=== PATIENT | female | born 1955 | race American Indian/Alaskan Native ===

== ENCOUNTER 2018-06-13 20:06 | Inpatient (IN) | payer BC, OTHER, SELFPAY ==
[2018-06-13] MEDS ORDERED: CATAPRES PO ONE (20:56)
--- NOTE | 2018-06-13 20:56 | Emergency Department Report ---
Chief Complaint: Weakness Stated Complaint: WEAKNESS/SWEATING Time Seen by Provider: 06/13/18 20:49 - HPI History of Present Illness: This is a 62 y.o. female that presents with weakness and lightheadedness x 2 days. She also complains of diaphoresis every 4 hours. PMH of DM2 & HTN. Patient states she took her self off medication for 6 months. She denies chest pain, SOB, n/v, or palpitations. - ROS Review of Systems: diaphoresis, weakness, and dizziness - Exam Vital Signs: Vital Signs 06/13/18 20:55 Temperature 98.3 F Pulse Rate 86 Respiratory 18 Rate Blood Pressure 214/109 O2 Sat by Pulse 97 Oximetry MSE screening note: Focused history and physical exam performed. Due to findings the following was ordered: labs, POC glucose 321, & ekg Given clonidine 0.2 mg po once Fast track for further evaluation. ED Disposition for MSE Condition: Stable
[2018-06-13 21:17] LABS: Basophils % (Auto) 0.6 % (0.0-1.8); Eosinophils # (Auto) 0.1 K/mm3 (0.0-0.4); Eosinophils % (Auto) 0.8 % (0.0-4.3); Hematocrit 37.1 % (30.3-42.9); Hemoglobin 12.3 gm/dl (10.1-14.3); Lymphocytes # (Auto) 2.3 K/mm3 (1.2-5.4); Lymphocytes % (Auto) 31.9 % (13.4-35.0); Mean Corpuscular HGB Conc 33 % (30-34); Mean Corpuscular Volume 82 fl (79-97); Monocytes # (Auto) 0.3 K/mm3 (0.0-0.8); Monocytes % (Auto) 4.8 % (0.0-7.3); Platelet Count 291 K/mm3 (140-440); Red Blood Count 4.53 M/mm3 (3.65-5.03); Red Cell Distribution Width 16.2 % (13.2-15.2)
[2018-06-13 21:44] LABS: Alanine Aminotransferase 10 units/L (7-56); Albumin 3.8 g/dL (3.9-5); BUN/Creatinine Ratio 17; Blood Urea Nitrogen 10 mg/dL (7-17); Calcium 9.1 mg/dL (8.4-10.2); Hemolysis Index 7
[2018-06-13] MEDS ORDERED: APRESOLINE IV ONE (21:49)
--- NOTE | 2018-06-13 21:54 | Emergency Department Report ---
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 Patient has history of hypertension and diabetes however patient states she took herself off of her medications approximately 6 months ago, recently followed up with her primary care physician. The patient denies chest pain, shortness of breath, headache. Patient denies abdominal pain or diarrhea, urinary frequency. -: days(s) (3) Severity scale (0 -10): 0 Consistency: intermittent Improves with: none Worsens with: none Associated Symptoms: diaphoresis, malaise, nausea/vomiting, weakness. denies: chest pain, cough, fever/chills, headaches, shortness of breath - Related Data Home Medications Medication Instructions Recorded Confirmed Last Taken No Known Home Medications [No 06/14/18 06/14/18 Unknown Reported Home Medications] Allergies Allergy/AdvReac Type Severity Reaction Status Date / Time No Known Allergies Allergy Unverified 04/18/14 11:21 ED Review of Systems ROS: Stated complaint: WEAKNESS/SWEATING Other details as noted in HPI Comment: All other systems reviewed and negative Constitutional: diaphoresis, malaise. denies: chills, fever Respiratory: denies: cough, shortness of breath Cardiovascular: denies: chest pain Gastrointestinal: nausea, vomiting. denies: abdominal pain, diarrhea Genitourinary: denies: frequency Neurological: headache (mild) ED Past Medical Hx - Past Medical History Previous Medical History?: Yes Hx Hypertension: Yes Hx Diabetes: Yes - Surgical History Past Surgical History?: No - Social History Smoking Status: Never Smoker Substance Use Type: None - Medications Home Medications: Home Medications Medication Instructions Recorded Confirmed Last Taken Type No Known Home Medications [No 06/14/18 06/14/18 Unknown History Reported Home Medications] ED Physical Exam - General Limitations: No Limitations General appearance: alert, in no apparent distress - Head Head exam: Present: atraumatic, normocephalic - Eye Eye exam: Present: normal appearance - ENT ENT exam: Present: mucous membranes moist - Neck Neck exam: Present: normal inspection - Respiratory Respiratory exam: Present: normal lung sounds bilaterally. Absent: respiratory distress - Cardiovascular Cardiovascular Exam: Present: regular rate, normal rhythm - GI/Abdominal GI/Abdominal exam: Present: soft. Absent: distended, tenderness - Extremities Exam Extremities exam: Present: normal inspection. Absent: pedal edema - Neurological Exam Neurological exam: Present: alert, oriented X3, CN II-XII intact. Absent: motor sensory deficit - Psychiatric Psychiatric exam: Present: normal affect, normal mood - Skin Skin exam: Present: warm, dry, intact, normal color ED Course Vital Signs 06/13/18 06/13/18 06/13/18 20:55 21:05 21:18 Temperature 98.3 F Pulse Rate 86 86 Respiratory 18 Rate Blood Pressure 214/109 214/109 Blood Pressure [Left] O2 Sat by Pulse 97 97 Oximetry 06/13/18 06/13/18 06/13/18 21:25 21:30 21:45 Temperature 98.1 F Pulse Rate 74 68 67 Respiratory 23 21 21 Rate Blood Pressure 229/114 228/107 Blood Pressure 229/114 [Left] O2 Sat by Pulse 98 97 97 Oximetry 06/13/18 06/13/18 06/13/18 22:00 22:16 22:30 Temperature Pulse Rate 70 84 84 Respiratory 23 25 H 26 H Rate Blood Pressure 202/107 202/107 202/107 Blood Pressure [Left] O2 Sat by Pulse 95 96 95 Oximetry 06/13/18 06/13/18 06/13/18 22:54 23:00 23:15 Temperature Pulse Rate 82 73 Respiratory 24 22 Rate Blood Pressure 202/107 196/105 215/105 Blood Pressure [Left] O2 Sat by Pulse 94 95 94 Oximetry 06/13/18 06/13/18 06/14/18 23:31 23:45 00:00 Temperature Pulse Rate 72 70 76 Respiratory 23 15 23 Rate Blood Pressure 215/105 196/105 198/105 Blood Pressure [Left] O2 Sat by Pulse 95 96 93 Oximetry 06/14/18 06/14/18 06/14/18 00:08 00:21 00:31 Temperature Pulse Rate 85 Respiratory 19 Rate Blood Pressure 198/105 Blood Pressure [Left] O2 Sat by Pulse 93 93 94 Oximetry 06/14/18 06/14/18 06/14/18 00:45 01:00 01:15 Temperature Pulse Rate 74 74 67 Respiratory 20 23 16 Rate Blood Pressure 198/105 177/98 177/100 Blood Pressure [Left] O2 Sat by Pulse 92 92 94 Oximetry 06/14/18 06/14/18 06/14/18 01:30 01:45 02:00 Temperature Pulse Rate 73 70 74 Respiratory 13 26 H 23 Rate Blood Pressure 186/109 173/96 178/102 Blood Pressure [Left] O2 Sat by Pulse 96 86 96 Oximetry 06/14/18 06/14/18 06/14/18 02:15 02:31 02:45 Temperature Pulse Rate 67 71 73 Respiratory 12 20 20 Rate Blood Pressure 186/109 186/109 191/106 Blood Pressure [Left] O2 Sat by Pulse 96 95 94 Oximetry 06/14/18 06/14/18 03:00 03:25 Temperature Pulse Rate 81 83 Respiratory 24 22 Rate Blood Pressure 163/84 Blood Pressure [Left] O2 Sat by Pulse 91 94 Oximetry ED Medical Decision Making - Lab Data Result diagrams: 06/14/18 02:56 06/14/18 02:56 - EKG Data -: EKG Interpreted by Or EKG shows normal: sinus rhythm, axis, intervals, QRS complexes Rate: normal - EKG Data When compared to previous EKG there are: no significant change (compared to 04/19/2011) Interpretation: nonspecific ST-T wave flash - Radiology Data Radiology results: report reviewed - Medical Decision Making 62-year-old female complaining with blood pressure medications presents with hypertensive urgency. Patient reports dizziness but no neuro deficits on exam. CT head negative for any acute findings. Patient given clonidine and hydralazine for blood pressure, however remains hypertensive, so patient placed on a Cardene drip. Labs unremarkable. Will admit to hospitalist, Dr. Parsons, for further management - Differential Diagnosis CVA, hypertensive urgency, DKA Critical Care Time: Yes Critical care time in (mins) excluding proc time.: 35 Critical care attestation.: If time is entered above; I have spent that time in minutes in the direct care of this critically ill patient, excluding procedure time. Critical Care Time: 35 minutes ED Disposition Clinical Impression: Hypertensive emergency, Dizziness Disposition: DC-[id number] OP ADMIT IP TO THIS HOSP Is pt being admited?: Yes Condition: Critical
[2018-06-13] MEDS ORDERED: CARDENE 50 MG in NACL 0.9% 250ML 230 ML IV SCH (23:45)
[2018-06-14 00:10] LABS: Bilirubin,Urine NEG (Negative); Blood,Urine NEG (Negative); Calcium Oxalate Crystals,Urine FEW; Color,Urine Yellow (Yellow); Mucus,Urine FEW /HPF; Protein,Urine <15 mg/dL mg/dL (Negative); Urobilinogen,Urine < 2.0 mg/dL (<2.0)
--- NOTE | 2018-06-14 00:28 | Cat Scan Report ---
PROCEDURE: CT HEAD/BRAIN WO CON TECHNIQUE: Routine axial imaging was obtained of the brain without IV contrast. HISTORY: dizziness COMPARISONS: None FINDINGS: There is diminished attenuation of the periventricular white matter compatible with chronic ischemic white matter disease changes. There is no evidence of acute stroke or hemorrhage. There is a remote l acunar infarct in the right basal ganglia. The visualized sinuses are clear. The mastoid air cells ar e well pneumatized. The calvarium appears intact. IMPRESSION: No evidence of acute stroke or hemorrhage. Chronic ischemic white matter disease change noted. Remote lacunar infarct in the right basal ganglia.. This document is electronically signed by Jesus Murillo MD., June 14 2018 12:26:03 AM ET
[2018-06-14] MEDS ORDERED: TYLENOL PO ONE (01:09)
--- NOTE | 2018-06-14 01:59 | History and Physical Report ---
History of Present Illness Date of examination: 06/14/18 History of present illness: 62-year-old woman with a history of hypertension, diabetes noncompliant with medication 6 months come to emergency room with complaints of 3 days of general malaise, all weakness, dizziness, diaphoresis and headache. Also complaining of one episode of nausea and vomiting. Blood pressure was unresponsive to IV hydralazine, clonidine, she is subsequent started on Cardene drip Review of systems Constitutional: no weight loss, chills, fever Ears, eyes, nose, mouth and throat: no nasal congestion, no nasal discharge, no sinus pressure, no vision change, no red eye. Neck: No neck pain or rigidity. Cardiovascular: no palpitations, chest pain Respiratory: no cough, shortness of breath Gastrointestinal: no hematochezia, abdominal pain Genitourinary : no frequency , no hematuria Musculoskeletal: no joint swelling or muscle ache Integumentary: no rash, no pruritis Neurological: no parathesias, no focal weakness Endocrine: no cold or heat intolerance, no polyuria or polydipsia Hematologic/Lymphatic: no easy bruising, no easy bleeding, no gland swelling Allergic/Immunologic: no urticaria, no angioedema. PAST MEDICAL HISTORY:hypertension, diabetes PAST SURGICAL HISTORY: 1 SOCIAL HISTORY: Denies alcohol, drugs, tobacco FAMILY HISTORY: Hypertension Medications and Allergies Allergies Allergy/AdvReac Type Severity Reaction Status Date / Time No Known Allergies Allergy Unverified 04/18/14 11:21 Home Medications Medication Instructions Recorded Confirmed Last Taken Type No Known Home Medications [No 06/14/18 06/14/18 Unknown History Reported Home Medications] Active Meds: Active Medications Nicardipine HCl 50 mg/ Sodium (Chloride) 250 mls @ 25 mls/hr IV TITR AMADO; Protocol Exam - Physical Exam Narrative exam: General Apperance: The patient lying in bed, breathing comfortable HEENT: Normocephalic, atraumatic. Pupils equally round and reactive to light, EOMI, no sclericterus or JVD or thyromegaly or nodule. , no carotid bruit, mucous membranes moist, no exudate or erythema Heart: S1-S2, regular is rhythm Lungs: Clear to auscultation bilaterally, breathing comfortable Abdomen: Positive bowel sounds, soft, nontender, nondistended, no organomegaly Extremities: No edema cyanosis clubbing Skin: no rash, nodule, warm and dry Neuro: cranial nerves 2-12 intact, speech is fluent, motor/sensory intact - Constitutional Vitals: Temp Pulse Resp BP Pulse Ox 98.1 F 73 13 186/109 96 06/13/18 21:25 06/14/18 01:30 06/14/18 01:30 06/14/18 01:30 06/14/18 01:30 Results - Labs CBC & Chem 7: 06/13/18 21:05 06/13/18 21:05 Labs: Abnormal lab results 06/13/18 06/13/18 06/13/18 Range/Units 21:05 21:05 21:26 MCH 27 L (28-32) pg RDW 16.2 H (13.2-15.2) % Creatinine 0.6 L (0.7-1.2) mg/dL Glucose 338 H (65-100) mg/dL POC Glucose 274 H (70-105) Albumin 3.8 L (3.9-5) g/dL Ur Specific [place] (1.003-1.030) 06/13/18 Range/Units 23:02 MCH (28-32) pg RDW (13.2-15.2) % Creatinine (0.7-1.2) mg/dL Glucose (65-100) mg/dL POC Glucose (70-105) Albumin (3.9-5) g/dL Ur Specific [place] 1.032 H (1.003-1.030) - Imaging and Cardiology CT Scan - head: report reviewed Assessment and Plan Assessment Hypertensive urgency Diabetes, uncontrolled Plan Continue Cardene drip Give a dose of Lantus now, start insulin sliding scale, fingersticks Check cardiac enzymes, DVT prophylaxis Consult critical care
[2018-06-14] MEDS ORDERED: SODIUM CHLORIDE FLUSH SYRINGE 10 ML IV PRN (02:20)
[2018-06-14] MEDS ORDERED: ZOFRAN IV PRN (02:20)
[2018-06-14] MEDS ORDERED: PERCOCET 5/325 PO PRN (02:20)
[2018-06-14] MEDS ORDERED: D50W (25GM) Syringe IV PRN (02:20)
[2018-06-14] MEDS ORDERED: LANTUS SUB-Q ONE (02:20)
[2018-06-14 03:15] LABS: Basophils % (Auto) 0.6 % (0.0-1.8); Eosinophils # (Auto) 0.1 K/mm3 (0.0-0.4); Hematocrit 36.2 % (30.3-42.9); Hemoglobin 11.6 gm/dl (10.1-14.3); Lymphocytes # (Auto) 2.7 K/mm3 (1.2-5.4); Lymphocytes % (Auto) 41.6 % (13.4-35.0); Mean Corpuscular HGB Conc 32 % (30-34); Mean Corpuscular Volume 82 fl (79-97); Monocytes # (Auto) 0.4 K/mm3 (0.0-0.8); Monocytes % (Auto) 5.6 % (0.0-7.3); Platelet Count 262 K/mm3 (140-440); Red Blood Count 4.41 M/mm3 (3.65-5.03); Red Cell Distribution Width 16.2 % (13.2-15.2)
[2018-06-14 03:39] LABS: BUN/Creatinine Ratio 18; Blood Urea Nitrogen 9 mg/dL (7-17); Calcium 8.9 mg/dL (8.4-10.2); Hemolysis Index 5
[2018-06-14] MEDS ORDERED: PNEUMOVAX 23 IM ONE ×2 (03:55→12:00)
[2018-06-14 03:58] LABS: Creatine Kinase MB < 1.0 ng/mL (0.0-4.0)
[2018-06-14] MEDS: HumaLOG SUB-Q SCH ×4 (08:00→22:11)
[2018-06-14] MEDS ORDERED: NORVASC PO SCH (09:00)
[2018-06-14] MEDS: APRESOLINE PO SCH ×3 (09:00→22:10)
[2018-06-14] MEDS: LOVENOX SUB-Q SCH (09:35)
[2018-06-14] MEDS: SODIUM CHLORIDE FLUSH SYRINGE 10 ML IV SCH ×2 (09:37→22:12)
--- NOTE | 2018-06-14 09:50 | Event Note ---
Date: 06/14/18 Patient with hypertensive emergency. was on cardene drip, now off, sine BP improved. Start Norvasc and Hydralazine. Stable to go to med/surg.
[2018-06-14] MEDS ORDERED: LOVENOX SUB-Q SCH (10:00)
[2018-06-14 10:29] LABS: Creatine Kinase MB < 1.0 ng/mL (0.0-4.0)
--- NOTE | 2018-06-14 10:33 | XRay Report ---
PORTABLE CHEST: Hypertension An AP portable view of the chest demonstrates a normal cardiac contour considering the limits of this technique. The lungs are clear with no evidence of infiltrate, fluid or failure. IMPRESSION: Normal portable chest.
--- NOTE | 2018-06-14 11:18 | Event Note ---
Date: 06/14/18 Patient admitted as hypertensive Urgency. Cardene weaned off, started on oral therapy and transfer orders already placed. No indication for Critical care to see.
[2018-06-14] MEDS ORDERED: LANTUS SUB-Q SCH (22:00)
[2018-06-15] MEDS: APRESOLINE PO SCH ×3 (06:10→22:33)
[2018-06-15] MEDS ORDERED: APRESOLINE PO SCH (08:00)
[2018-06-15] MEDS ORDERED: NORVASC PO SCH (08:00)
[2018-06-15] MEDS: HumaLOG SUB-Q SCH ×4 (08:31→22:40)
[2018-06-15] MEDS: NORVASC PO SCH (08:42)
[2018-06-15] MEDS: TYLENOL PO PRN ×2 (10:07→18:00)
[2018-06-15] MEDS: LOVENOX SUB-Q SCH (10:08)
[2018-06-15] MEDS: APRESOLINE IV PRN ×2 (12:23→18:02)
[2018-06-15] MEDS: SODIUM CHLORIDE FLUSH SYRINGE 10 ML IV SCH ×2 (12:24→22:07)
--- NOTE | 2018-06-15 17:02 | Progress Note ---
Assessment and Plan Assessment and plan: hypertensive emergency Started on Amlodipine and Hydralazine. Increased dose of Amlodipine and Hydralazine If BP remains high may add Clonidine Patient has been non-compliant with meds Diabetes mellitus type 2 Uncontrolled Started on Novolin 70/30 patient has been off oral meds for more than 6 months I recommended Insulin on discharge but she decloines, she prefers oral meds morbid obesity Full code status History Interval history: Headache Dizziness nausea and vomiting Hospitalist Physical - Physical exam Narrative exam: GEN: Not in acute distress, lying in bed HEENT: Normocephalic, atraumatic, Neck: supple, No JVD Heart:S1 and S2 reg, no murmurs Lungs: Clear to auscultation bilat, no crackles, no wheeze Abd:soft, non tender, non distended, normal bowel sounds Ext: Trace bilat edema, no clubbing, no cyanosis Neuro:Awake,alert,oriented X 3, no focal signs Psych: normal mood - Constitutional Vitals: Temp Pulse Resp BP Pulse Ox 98.0 F 108 H 18 189/82 93 06/15/18 11:51 06/15/18 13:00 06/15/18 13:00 06/15/18 14:32 06/15/18 11:53 Results - Labs CBC & Chem 7: 06/14/18 02:56 06/14/18 02:56 Labs: Laboratory Last Values WBC 6.5 K/mm3 (4.5-11.0) 06/14/18 02:56 RBC 4.41 M/mm3 (3.65-5.03) 06/14/18 02:56 Hgb 11.6 gm/dl (10.1-14.3) 06/14/18 02:56 Hct 36.2 % (30.3-42.9) 06/14/18 02:56 MCV 82 fl (79-97) 06/14/18 02:56 MCH 26 pg (28-32) L 06/14/18 02:56 MCHC 32 % (30-34) 06/14/18 02:56 RDW 16.2 % (13.2-15.2) H 06/14/18 02:56 Plt Count 262 K/mm3 (140-440) 06/14/18 02:56 Lymph % (Auto) 41.6 % (13.4-35.0) H 06/14/18 02:56 [place] % (Auto) 5.6 % (0.0-7.3) 06/14/18 02:56 Eos % (Auto) 1.0 % (0.0-4.3) 06/14/18 02:56 Baso % (Auto) 0.6 % (0.0-1.8) 06/14/18 02:56 Lymph # 2.7 K/mm3 (1.2-5.4) 06/14/18 02:56 [place] # 0.4 K/mm3 (0.0-0.8) 06/14/18 02:56 Eos # 0.1 K/mm3 (0.0-0.4) 06/14/18 02:56 Baso # 0.0 K/mm3 (0.0-0.1) 06/14/18 02:56 Seg Neutrophils % 51.2 % (40.0-70.0) 06/14/18 02:56 Seg Neutrophils # 3.3 K/mm3 (1.8-7.7) 06/14/18 02:56 Sodium 136 mmol/L (137-145) L 06/14/18 02:56 Potassium 3.7 mmol/L (3.6-5.0) 06/14/18 02:56 Chloride 97.7 mmol/L (98-107) L 06/14/18 02:56 Carbon Dioxide 26 mmol/L (22-30) 06/14/18 02:56 Anion Gap 16 mmol/L 06/14/18 02:56 BUN 9 mg/dL (7-17) 06/14/18 02:56 Creatinine 0.5 mg/dL (0.7-1.2) L 06/14/18 02:56 Estimated GFR > 60 ml/min 06/14/18 02:56 BUN/Creatinine Ratio 18 % 06/14/18 02:56 Glucose 268 mg/dL (65-100) H 06/14/18 02:56 POC Glucose 272 (70-105) H 06/15/18 11:55 Hemoglobin A1c 11.4 % (4-6) H 06/15/18 04:51 Calcium 8.9 mg/dL (8.4-10.2) 06/14/18 02:56 Total Bilirubin 0.30 mg/dL (0.1-1.2) 06/13/18 21:05 AST 11 units/L (5-40) 06/13/18 21:05 ALT 10 units/L (7-56) 06/13/18 21:05 Alkaline Phosphatase 88 units/L (35-129) 06/13/18 21:05 Total Creatine Kinase 45 units/L (30-135) 06/14/18 09:06 CK-MB (CK-2) < 1.0 ng/mL (0.0-4.0) 06/14/18 09:06 CK-MB (CK-2) Rel Index 2.2 (0-4) 06/14/18 09:06 Troponin T < 0.010 ng/mL (0.00-0.029) 06/14/18 09:06 Total Protein 7.4 g/dL (6.3-8.2) 06/13/18 21:05 Albumin 3.8 g/dL (3.9-5) L 06/13/18 21:05 Albumin/Globulin Ratio 1.1 % 06/13/18 21:05 Urine Color Yellow (Yellow) 06/13/18 23:02 Urine Turbidity Clear (Clear) 06/13/18 23:02 Urine pH 5.0 (5.0-7.0) 06/13/18 23:02 Ur Specific [place] 1.032 (1.003-1.030) H 06/13/18 23:02 Urine Protein <15 mg/dl mg/dL (Negative) 06/13/18 23:02 Urine Glucose (UA) >=500 mg/dL (Negative) 06/13/18 23:02 Urine Ketones Tr mg/dL (Negative) 06/13/18 23:02 Urine Blood Neg (Negative) 06/13/18 23:02 Urine Nitrite Neg (Negative) 06/13/18 23:02 Urine Bilirubin Neg (Negative) 06/13/18 23:02 Urine Urobilinogen < 2.0 mg/dL (<2.0) 06/13/18 23:02 Ur Leukocyte Esterase Neg (Negative) 06/13/18 23:02 Urine WBC (Auto) 1.0 /HPF (0.0-6.0) 06/13/18 23:02 Urine RBC (Auto) 2.0 /HPF (0.0-6.0) 06/13/18 23:02 U Epithel Cells (Auto) 6.0 /HPF (0-13.0) 06/13/18 23:02 Calcium Oxalate Crystal Few 06/13/18 23:02 Urine Mucus Few /HPF 06/13/18 23:02
[2018-06-15] MEDS ORDERED: IBUPROFEN PO PRN (18:09)
[2018-06-15] MEDS: GLUCOPHAGE PO SCH (22:33)
[2018-06-16] MEDS: APRESOLINE PO SCH ×2 (06:29→13:37)
[2018-06-16] MEDS: HumaLOG SUB-Q SCH ×3 (07:30→16:30)
[2018-06-16] MEDS: GLUCOPHAGE PO SCH ×2 (08:00→17:41)
[2018-06-16] MEDS: LOVENOX SUB-Q SCH (09:36)
[2018-06-16] MEDS: NORVASC PO SCH (09:37)
[2018-06-16] MEDS: SODIUM CHLORIDE FLUSH SYRINGE 10 ML IV SCH (09:38)
[2018-06-16] MEDS ORDERED: CATAPRES PO SCH (10:00)
[2018-06-16 14:45] VITALS: BP 137/75
--- NOTE | 2018-06-16 15:09 | Discharge Summary ---
Providers - Providers Date of Admission: 06/14/18 01:59 Date of discharge: 06/16/18 Attending physician: ROMERO RAMESH Primary care physician: [employer]IST[employer] Hospitalization Condition: Fair Hospital course: Patient is 62 yo with a history of hypertension, diabetes, noncompliant with medication 6 months came to emergency room with complaints of 3 days of general malaise, generalized weakness, dizziness, diaphoresis and headache. Also complaining of one episode of nausea and vomiting. Initial BP was 214/109 Blood pressure was unresponsive to IV hydralazine, clonidine, she was subsequent started on Cardene drip and orders put in to admit to ICU. However BP improved in Ed, shewas started on oral pills and admitted to Medical floor. She was put on Norvasc, Hydralazine, BP became controlled. On 06/16/18 her BP was stable at 137/75 and she was discharged home on Norvasc, Clonidine, Hydralazine and Metformin. Insulin was offered for diabetes but she declined , says she prefers pills. Total time spent on discharge, 32 mins Disposition: DC- TO HOME OR SELFCARE - Discharge Diagnoses (1) Diabetes mellitus type 2, uncontrolled Status: Acute (2) Hypertensive emergency Status: Acute (3) Morbid obesity Status: Acute Core Measure Documentation - Palliative Care Palliative Care/ Comfort Measures: Not Applicable - Core Measures Any of the following diagnoses?: none Exam - Physical Exam Narrative exam: GEN: Not in acute distress, lying in bed HEENT: Normocephalic, atraumatic, Neck: supple, No JVD Heart:S1 and S2 reg, no murmurs Lungs: Clear to auscultation bilat, no crackles, no wheeze Abd:soft, non tender, non distended, normal bowel sounds Ext: Trace bilat edema, no clubbing, no cyanosis Neuro:Awake,alert,oriented X 3, no focal signs Psych: normal mood - Constitutional Vitals: Temp Pulse Resp BP Pulse Ox 98.6 F 89 20 137/75 95 06/16/18 14:41 06/16/18 14:41 06/16/18 14:41 06/16/18 14:41 06/16/18 14:41 Plan Activity: advance as tolerated Diet: low fat, low cholesterol, low salt, diabetic Additional Instructions: 1.Follow up with Dr. Janett in 3-5 days Prescriptions: hydrALAZINE [Apresoline TAB] 100 mg PO Q8HR #90 tab cloNIDine [Catapres] 0.1 mg PO BID #60 tablet AtorvaSTATin [Lipitor] 20 mg PO QHS #30 tab amLODIPine [Norvasc] 10 mg PO DAILY #30 tablet
[2018-06-16 18:08] LABS: Chol/HDL Ratio 4.6 %
== END 2018-06-16 18:20 | disposition home or self-care (01) | DRG 305 ==
LOC: ED 20:06 → CC1 06-14 01:59 → 3A 06-14 14:02
PROVIDERS: ADMIT Internal Medicine; ATTEND Internal Medicine
PROC: 3E0234Z Introduction of Serum, Toxoid and Vaccine into Muscle, Percutaneous Approach (ICD-10-PCS; principal; 2018-06-14)
DX: I16.1 Hypertensive emergency (principal); Z68.41 Body mass index [BMI] 40.0-44.9, adult; E11.9 Type 2 diabetes mellitus without complications; E66.01 Morbid (severe) obesity due to excess calories; I10 Essential (primary) hypertension; Z91.14 Patient's other noncompliance with medication regimen; Z82.49 Family history of ischemic heart disease and other diseases of the circulatory system; Z23 Encounter for immunization
CPT/HCPCS: 36415; 70450; 71045; 80048; 80053; 80061; 81001; 82550; 82553; 82962; 83036; 84484; 85025; 90732; 93005; 93010; 96372; 96374; G0378; J0360; J1650; J1815; J7050

== ENCOUNTER 2018-06-18 17:15 | Inpatient (IN) | payer OTHER, SELFPAY ==
[2018-06-18] MEDS ORDERED: NORMODYNE IV ONE ×2 (20:30→20:34)
[2018-06-18] MEDS ORDERED: ZOFRAN IV ONE (20:30)
[2018-06-18] MEDS ORDERED: ZOFRAN ONE (20:34)
--- NOTE | 2018-06-18 20:59 | Emergency Department Report ---
HPI - General Chief Complaint: Nausea/Vomiting/Diarrhea Time Seen by Provider: 06/18/18 20:49 - HPI HPI: Room 25 The patient is 62-year-old female presenting with chief complaint of nausea vomiting and diarrhea. Patient states she had eaten some oatmeal toast and aches this morning at 10:00. At approximately noon she states she began having nausea vomiting and diarrhea. Patient denies headache, chest pain or abdominal pain. Patient denies any other complaints. HPI update (20:05) Patient now states that she has had a headache since earlier this afternoon. Location: Gastrointestinal system Duration: Constant since noon Quality: Nausea Severity: Moderate Modifying factors: [see above] Context: [see above] Mode of transportation: [not driving] ED Past Medical Hx - Past Medical History Hx Hypertension: Yes Hx Diabetes: Yes - Family History Family history: no significant - Social History Smoking Status: Never Smoker Substance Use Type: None - Medications Home Medications: Home Medications Medication Instructions Recorded Confirmed Last Taken Type AtorvaSTATin [Lipitor] 20 mg PO QHS #30 tab 06/16/18 06/19/18 06/17/18 Rx Metformin HCl 1,000 mg PO BID #60 tablet 06/16/18 06/19/18 06/18/18 Rx amLODIPine [Norvasc] 10 mg PO DAILY #30 tablet 06/16/18 06/19/18 06/18/18 Rx cloNIDine [Catapres] 0.1 mg PO BID #60 tablet 06/16/18 06/19/18 06/18/18 Rx hydrALAZINE [Apresoline TAB] 100 mg PO Q8HR #90 tab 06/16/18 06/19/18 06/18/18 Rx ED Review of Systems ROS: Stated complaint: LETHARGIC/NAUSEA VOMITING Other details as noted in HPI Constitutional: no symptoms reported Eyes: denies: eye pain ENT: denies: throat pain Respiratory: no symptoms reported Cardiovascular: denies: chest pain Endocrine: no symptoms reported Gastrointestinal: nausea, vomiting, diarrhea. denies: abdominal pain Genitourinary: denies: dysuria Musculoskeletal: denies: back pain Neurological: denies: headache Physical Exam - Physical Exam Vital Signs: Vital Signs 06/18/18 06/18/18 06/18/18 19:01 19:15 19:21 Temperature 97.5 F L Pulse Rate 92 H Respiratory 18 Rate Blood Pressure 202/94 207/98 192/93 Blood Pressure [Right] O2 Sat by Pulse 95 97 Oximetry 06/18/18 06/18/18 06/18/18 19:31 19:45 20:01 Temperature Pulse Rate 97 H 99 H Respiratory Rate Blood Pressure 197/94 212/102 206/97 Blood Pressure [Right] O2 Sat by Pulse 99 97 96 Oximetry 06/18/18 06/18/18 06/18/18 20:15 20:35 20:40 Temperature Pulse Rate 100 H 102 H 85 Respiratory Rate Blood Pressure 203/104 199/98 Blood Pressure 161/82 [Right] O2 Sat by Pulse Oximetry Physical Exam: GENERAL: The patient is well-developed well-nourished female lying on stretcher. [] HEENT: Normocephalic. Atraumatic. Extraocular motions are intact. Patient has moist mucous membranes. NECK: Supple. Trachea midline CHEST/LUNGS: Clear to auscultation. There is no respiratory distress noted. HEART/CARDIOVASCULAR: Regular. There is no tachycardia. There is no gallop rub or murmur. ABDOMEN: Abdomen is soft, nontender. Patient has normal bowel sounds. There is no abdominal distention. SKIN: There is no rash. There is no edema. There is no diaphoresis. NEURO: The patient is awake, alert, and oriented. The patient is cooperative. The patient has normal speech MUSCULOSKELETAL: There is no evidence of acute injury. ED Course Vital Signs 06/18/18 06/18/18 06/18/18 19:01 19:15 19:21 Temperature 97.5 F L Pulse Rate 92 H Respiratory 18 Rate Blood Pressure 202/94 207/98 192/93 Blood Pressure [Right] O2 Sat by Pulse 95 97 Oximetry 06/18/18 06/18/18 06/18/18 19:31 19:45 20:01 Temperature Pulse Rate 97 H 99 H Respiratory Rate Blood Pressure 197/94 212/102 206/97 Blood Pressure [Right] O2 Sat by Pulse 99 97 96 Oximetry 06/18/18 06/18/18 06/18/18 20:15 20:35 20:40 Temperature Pulse Rate 100 H 102 H 85 Respiratory Rate Blood Pressure 203/104 199/98 Blood Pressure 161/82 [Right] O2 Sat by Pulse Oximetry ED Medical Decision Making - Lab Data Result diagrams: 06/18/18 21:13 06/19/18 00:07 - EKG Data -: EKG Interpreted by Me EKG shows normal: sinus rhythm Rate: normal - EKG Data When compared to previous EKG there are: no significant change Interpretation: unchanged when compared t (06/13/2018) - Radiology Data Radiology results: report reviewed (CT head, CT abdomen and pelvis), image reviewed (CT head, CT abdomen and pelvis) [facility] [address] [place] [address] Cat Scan Report Signed Patient: HEIDE GALLEGOS MR#: [id number] 121 : 1955 Acct:[id number] Age/Sex: 62 / F ADM Date: 06/18/18 Loc: ED Attending Dr: Ordering Physician: KEN DEL ROSARIO MD Date of Service: 06/18/18 Procedure(s): CT a bdomen pelvis w con Accession Number(s): [id number] cc: KEN DEL ROSARIO MD PROCEDURE: CT ABDOMEN PELVIS W CON TECHNIQUE: Computerized axial tomography of the abdomen and pelvis was performed after the IV injection of iodinated nonionic contrast. CT DOSE LENGTH PRODUCT: mGycm HISTORY: nausea vomiting diarrhea COMPARISONS: None . FINDINGS: Lower Lung rivera: Small amount of linear atelectasis seen in the lung bases which otherwise appear clear. Upper Abdomen: The liver density is mildly diffusely decreased consistent with fatty infiltration. There is increased density dependently in the gallbladder. I suspect there may be gallstones present. The gallbladder is otherwise unremarkable. The adrenal gla nds, the pancreas and spleen are unremarkable. Small hiatal hernia appears to be present. Kidneys, Ureters and Urinary bladder: Subcentimeter renal cortical cysts appear to be visualized bilaterally. The kidneys, ureters and urinary bladder otherwise are unremarkable. Calcifications are seen in the lower pelvis which appear to represent phleboliths. Urinary bladder showed no focal abnormality. Retroperitoneum: Atherosclerotic changes are seen in the abdominal aorta. No aneurysm is visualized. Nonspecific subcentimeter lymph nodes are seen in the retroperitoneum. No pathologically enlarged lymph nodes are identified. Bowel: No focal abnormalities are identified. There is no evidence of bowel obstruction ascites or free intraperitoneal gas. The appendix is not visualized. No inflammatory changes are seen in the right lower quadrant. Small umbilical hernia containing adipose tissue is visualized. No herniated loops of bowel are seen. Reproductive organs: Uterus is deviated to the left of midline and otherwise is unremarkable. No abnormal adnexal masses are seen. Other: No acute bone abnormalities are seen. IMPRESSION: Fatty infiltration of the liver. Increased density dependently in the gallbladder. I suspect cholelithiasis. This could be confirmed with ultrasound if clinically indicated. Small renal cortical cysts visualized. Small hiatal hernia is present. Small umbilical hernia is present. This document is electronically signed by Camilo Villasenor MD., June 19 2018 01:04:08 AM ET Transcribed By: DFN Dictated By: CAMILO VILLASENOR MD Electronically Authenticated By: CAMILO VILLASENOR MD Signed Date/Time: 06/19/18104 DD/ 58 TD/TT: 06/18/182358 [facility] [address] [place] [address] Cat Scan Report Signed Patient: HEIDE GALLEGOS MR#: [id number] 121 : 1955 Acct:[id number] Age/Sex: 62 / F ADM Date: 06/18/18 Loc: ED Attending Dr: Ordering Physician: KEN DEL ROSARIO MD Date of Service: 06/18/18 Procedure(s): CT head/brain wo con Accession Number(s): [id number] cc: KEN DEL ROSARIO MD PROCEDURE: CT HEAD/BRAIN WO CON TECHNIQUE: Computerized tomography of the head was performed without contrast material. CT DOSE LENGTH PRODUCT: mGycm HISTORY: hypertension, headache COMPARISONS: June 14, 2018 . FINDINGS: Skull and scalp: Normal . Paranasal sinuses: Normal . Ventricles and subarachnoid spaces: There is mild central and cortical atrophy. There is no hydrocephalus or asymmetry. . Cerebrum: No evidence of hemorrhage, acute infarction or mass . 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 There is chronic deep white matter ischemic gliosis. Cerebellum and brainstem: No evidence of hemorrhage, acute infarction or mass . Vasculature: Normal . IMPRESSION: There are chronic involutional and ischemic changes. There is no acute abnormality. There has been no change since the prior examination. . This document is electronically signed by Iban Desir MD., June 19 2018 02:08:25 AM ET Transcribed By: CO Dictated By: IBAN DESIR MD Electronically Authenticated By: IBAN DESIR MD Signed Date/Time: 06/19/18209 DD/ 55 TD/TT: 06/19/18199 - Differential Diagnosis gastroenteritis, partial small bowel obstruction Critical care attestation.: If time is entered above; I have spent that time in minutes in the direct care of this critically ill patient, excluding procedure time. ED Disposition Clinical Impression: Nausea vomiting and diarrhea, DKA (diabetic ketoacidoses), Hypertensive urgency Disposition: OP ADMIT IP TO THIS HOSP Is pt being admited?: Yes Does the pt Need Aspirin: No Condition: Fair Instructions: Diabetic Ketoacidosis (ED) Referrals: ZAMZAM MURRAY MD [Primary Care Provider] - 3-5 Days Time of Disposition: 02:21 (hospitalist paged (Dr Ha))
[2018-06-18 21:35] LABS: Bacteria,Urine 1+ /HPF (Negative); Bilirubin,Urine NEG (Negative); Blood,Urine NEG (Negative); Color,Urine Straw (Yellow); Mucus,Urine FEW /HPF; Protein,Urine <15 mg/dL mg/dL (Negative); Urobilinogen,Urine < 2.0 mg/dL (<2.0)
[2018-06-18 21:43] LABS: Basophils % (Auto) 0.2 % (0.0-1.8); Hemoglobin 12.4 gm/dl (10.1-14.3); Lymphocytes # (Auto) 0.8 K/mm3 (1.2-5.4); Lymphocytes % (Auto) 8.7 % (13.4-35.0); Mean Corpuscular HGB Conc 32 % (30-34); Mean Corpuscular Volume 83 fl (79-97); Monocytes # (Auto) 0.3 K/mm3 (0.0-0.8); Monocytes % (Auto) 2.8 % (0.0-7.3); Platelet Count 314 K/mm3 (140-440); Red Blood Count 4.71 M/mm3 (3.65-5.03); Red Cell Distribution Width 16.4 % (13.2-15.2)
[2018-06-18 22:42] LABS: Alanine Aminotransferase 12 units/L (7-56); Albumin 4.5 g/dL (3.9-5); BUN/Creatinine Ratio 16; Blood Urea Nitrogen 8 mg/dL (7-17); Calcium 9.3 mg/dL (8.4-10.2); Hemolysis Index 12
[2018-06-18 23:23] LABS: Creatine Kinase MB < 1.0 ng/mL (0.0-4.0)
[2018-06-18] MEDS ORDERED: HumuLIN R 100 UNITS in NACL 0.9% 99 ML IV SCH (23:45)
[2018-06-18] MEDS ORDERED: D50W (25GM) Syringe IV PRN (23:50)
[2018-06-18] MEDS ORDERED: REGLAN IV ONE (23:50)
[2018-06-19 00:34] LABS: BUN/Creatinine Ratio 12; Blood Urea Nitrogen 7 mg/dL (7-17); Calcium 8.9 mg/dL (8.4-10.2); Hemolysis Index 11
--- NOTE | 2018-06-19 01:05 | Cat Scan Report ---
PROCEDURE: CT ABDOMEN PELVIS W CON TECHNIQUE: Computerized axial tomography of the abdomen and pelvis was performed after the IV inject ion of iodinated nonionic contrast. CT DOSE LENGTH PRODUCT: mGycm HISTORY: nausea vomiting diarrhea COMPARISONS: None . FINDINGS: Lower Lung rivera: Small amount of linear atelectasis seen in the lung bases which otherwise appear clear. Upper Abdomen: The liver density is mildly diffusely decreased consistent with fatty infiltration. T here is increased density dependently in the gallbladder. I suspect there may be gallstones present. The gallbladder is otherwise unremarkable. The adrenal glands, the pancreas and spleen are unremarkab le. Small hiatal hernia appears to be present. Kidneys, Ureters and Urinary bladder: Subcentimeter renal cortical cysts appear to be visualized denys aterally. The kidneys, ureters and urinary bladder otherwise are unremarkable. Calcifications are see n in the lower pelvis which appear to represent phleboliths. Urinary bladder showed no focal abnormal ity. Retroperitoneum: Atherosclerotic changes are seen in the abdominal aorta. No aneurysm is visualized. Nonspecific subcentimeter lymph nodes are seen in the retroperitoneum. No pathologically enlarged ly mph nodes are identified. Bowel: No focal abnormalities are identified. There is no evidence of bowel obstruction ascites or f ree intraperitoneal gas. The appendix is not visualized. No inflammatory changes are seen in the righ t lower quadrant. Small umbilical hernia containing adipose tissue is visualized. No herniated loops of bowel are seen. Reproductive organs: Uterus is deviated to the left of midline and otherwise is unremarkable. No abn ormal adnexal masses are seen. Other: No acute bone abnormalities are seen. IMPRESSION: Fatty infiltration of the liver. Increased density dependently in the gallbladder. I suspect cholelithiasis. This could be confirmed w ith ultrasound if clinically indicated. Small renal cortical cysts visualized. Small hiatal hernia is present. Small umbilical hernia is present. This document is electronically signed by Camilo Black MD., June 19 2018 01:04:08 AM ET
[2018-06-19] MEDS ORDERED: D5W/0.45% NACL/KCL 20 MEQ 20 MEQ/1,000 ML BAG IV SCH (02:08)
--- NOTE | 2018-06-19 02:10 | Cat Scan Report ---
PROCEDURE: CT HEAD/BRAIN WO CON TECHNIQUE: Computerized tomography of the head was performed without contrast material. CT DOSE LENGTH PRODUCT: mGycm HISTORY: hypertension, headache COMPARISONS: June 14, 2018 . FINDINGS: Skull and scalp: Normal . Paranasal sinuses: Normal . Ventricles and subarachnoid spaces: There is mild central and cortical atrophy. There is no hydrocep halus or asymmetry. . Cerebrum: No evidence of hemorrhage, acute infarction or mass . 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 There is chronic deep white matter ischemic gliosis. Cerebellum and brainstem: No evidence of hemorrhage, acute infarction or mass . Vasculature: Normal . IMPRESSION: There are chronic involutional and ischemic changes. There is no acute abnormality. Ther e has been no change since the prior examination. . This document is electronically signed by Iban Rod MD., June 19 2018 02:08:25 AM ET
[2018-06-19 02:33] LABS: BUN/Creatinine Ratio 12; Blood Urea Nitrogen 7 mg/dL (7-17); Calcium 9.1 mg/dL (8.4-10.2); Hemolysis Index 9
[2018-06-19] MEDS ORDERED: ZOFRAN IV ONE (03:04)
[2018-06-19] MEDS ORDERED: ZOFRAN ONE (03:07)
[2018-06-19] MEDS ORDERED: ZOFRAN IV PRN (03:10)
[2018-06-19] MEDS ORDERED: MAGNESIUM SULFATE 2GM/50ML 2 GM/50 ML BAG IV ONE ×2 (03:51→04:27)
[2018-06-19] MEDS: NACL 0.9% 1000 ML 1,000 ML IV SCH ×2 (03:54→22:58)
[2018-06-19] MEDS ORDERED: D50W (25GM) Syringe IV PRN (03:54)
--- NOTE | 2018-06-19 04:56 | History and Physical Report ---
CHIEF COMPLAINT: Nausea, vomiting, and diarrhea. HISTORY OF PRESENTING ILLNESS: The patient is a 62-year-old female who has been having nausea, vomiting, and diarrhea going on since yesterday and associated with some abdominal discomfort. There was no history of fever or chills. No history of shortness of breath or chest pain. Also, the patient denies history of headache and presented for evaluation. PAST MEDICAL HISTORY: Pertinent for hypertension and diabetes mellitus. PAST SURGICAL HISTORY: Unremarkable. FAMILY HISTORY: Noncontributory. SOCIAL HISTORY: The patient does not smoke, does not drink alcohol, and does not use illicit drug. MEDICATIONS: The patient is on Lipitor 20 mg at bedtime, metformin 1000 mg by mouth twice daily, Norvasc 10 mg by mouth daily, clonidine or Catapres 0.1 mg by mouth twice daily, hydralazine 100 mg by mouth every 8 hours. ALLERGIES: There are no known drug allergies. REVIEW OF SYSTEMS: CONSTITUTIONAL: There is no fever, no chills, no diaphoresis. HEENT: There is no headache or sore throat. CARDIOVASCULAR SYSTEM: There is no chest pain or orthopnea. RESPIRATORY SYSTEM: There is no shortness of breath or cough. GASTROINTESTINAL SYSTEM: Nausea, vomiting, and diarrhea are present. Abdominal discomfort present. No constipation. NEUROLOGICAL SYSTEM: There is no numbness, no dizziness, no altered mental status. MUSCULOSKELETAL SYSTEM: There is no joint pain or swelling. DERMATOLOGICAL SYSTEM: There is no skin rash or itching. GENITOURINARY SYSTEM: There is no dysuria, hematuria, or flank pain. Rest of system review is normal. PHYSICAL EXAMINATION: GENERAL: At the time of exam, the patient was found to be alert and oriented x 3 and not in acute distress. VITAL SIGNS: At the initial time of presentation showed temperature of 97.5 degrees Fahrenheit, pulse of 92, respirations 18, blood pressure 192/93, O2 sat of 97% on room air. HEENT: Showed pupils to be equal, round, reactive to light and accommodation. Extraocular muscles are intact. NECK: Supple with no JVD or carotid bruit. CARDIOVASCULAR SYSTEM: Showed normal first and second heart sounds with no gallops or murmurs. RESPIRATORY SYSTEM: Showed good air entry on both sides of the lungs with no abnormal breath sounds. GASTROINTESTINAL SYSTEM: Showed abdomen to be full, soft, nontender with no organomegaly or rigidity. NEUROLOGIC: Showed no focal deficit. MUSCULOSKELETAL SYSTEM: Showed no joint swelling or tenderness. DERMATOLOGICAL SYSTEM: Showed no skin rash. GENITOURINARY SYSTEM: Showing no costovertebral angle tenderness. PERTINENT LABORATORY AND IMAGING STUDIES: The patient had CT of the abdomen and pelvis with contrast done that shows fatty infiltration of the liver, increased density dependently in the gallbladder, which is suspicious for cholelithiasis and radiology states that this could be confirmed with an ultrasound if clinically indicated. There is finding of small renal cortical cyst and small hiatal hernia with small umbilical hernia present. Also, the patient has CT of the head without contrast and CT of the head showed that there are chronic involutional and ischemic changes. There is no acute abnormality. There has been no change since the prior exam according to the radiologist. The patient's lab results initially showed CBC with normal white count, normal hemoglobin, and normal hematocrit with CBC differential showing elevated segmented neutrophil count of 88.3%. The patient's ABG shows venous pH of 7.3. The patient's initial chemistry showed sodium of 138 with low chloride of 96.7 and low CO2 of 20 with initial anion gap of 22 and elevated blood glucose of 327 with rest of chemistry being unremarkable. The patient's urine is showing some urine ketones. The patient's initial diagnoses were acute gastroenteritis and mild DKA. However, the patient has had IV fluid with repeat chemistry showing an anion gap of about 17 with CO2 of 22 and blood glucose of 265 and low magnesium of 1.6. DIAGNOSES: 1. Acute gastroenteritis. 2. Low magnesium level. PLAN OF CARE: 1. The patient will be admitted to medical surgical chung on remote telemetry. 2. The patient will be on normal saline running at 125 mL an hour. 3. The patient will be on Accu-Chek a.c. and at bedtime followed by sliding scale coverage using Regular insulin and medium sliding scale. 4. The patient will be on IV Zofran 4 mg every 6 hours as needed for nausea and vomiting. 5. The patient will have basic metabolic panel checked serially every 2 hours x 3. 6. The patient's DVT prophylaxis will be through sequential compressive device. 7. The patient will have magnesium replacement using magnesium sulfate rider 2 g to be given per protocol. 8. The patient will have magnesium level checked in the morning. JOB# [id number] OCN/NTS
[2018-06-19] MEDS ORDERED: PHENERGAN PO PRN (05:29)
[2018-06-19] MEDS: APRESOLINE PO SCH ×3 (06:09→21:47)
[2018-06-19] MEDS: NORVASC PO SCH (09:11)
[2018-06-19] MEDS: HEPARIN SUB-Q SCH ×2 (09:12→21:47)
[2018-06-19] MEDS: CATAPRES PO SCH ×2 (09:12→21:47)
[2018-06-19] MEDS: HumuLIN R SUB-Q SCH ×4 (09:13→21:57)
[2018-06-19 09:52] LABS: BUN/Creatinine Ratio 14; Blood Urea Nitrogen 7 mg/dL (7-17); Calcium 8.7 mg/dL (8.4-10.2); Hemolysis Index 104
[2018-06-19] MEDS: TYLENOL PO PRN (12:03)
--- NOTE | 2018-06-19 13:00 | Event Note ---
Date: 06/19/18 Patient seen and examined admitted with n/V ordered abdominal US will follow current mx and plan as dictated in h/p
[2018-06-20] MEDS: APRESOLINE PO SCH ×3 (05:57→21:32)
--- NOTE | 2018-06-20 08:33 | Ultrasound Report ---
ULTRASOUND ABDOMEN COMPLETE INDICATION: Gallstone, nausea, vomiting. COMPARISON: 06/18/2018 CT and 04/29/2011 US. FINDINGS: Abdominal sonography again demonstrates diffuse hepatic echogenic coarsening with grossly preserved contours. No definite focal suspicious lesions or biliary dilatation, to the extent assessed. Right hepatic lobe approximately 19 cm in midclavicular length. Subtle gallbladder sludge or artifact without significant shadowing gallstones or pericholecystic fluid. Gallbladder wall thickness is 2.5 mm. Common bile duct is 4.7 mm. Homogenous spleen, approximately 7.1 cm in length. No ascites. Imaged pancreas grossly within normal limits, though tail not well seen due to bowel gas. IVC obscured. Nonaneurysmal abdominal aorta. No hydronephrosis with right kidney approximately 10.8 x 4.9 x 5.6 cm with cortical thickness of 1.6 cm while the left kidney is 11.8 x 4.9 x 5.3 cm with cortical thickness of 1.9 cm. CONCLUSION: Fatty liver and possible slight gallbladder sludge again noted without acute sonographic abnormality, as described. Please correlate. Thank you for the opportunity to participate in this patient's care.
[2018-06-20] MEDS: HumuLIN R SUB-Q SCH ×4 (10:15→23:24)
[2018-06-20] MEDS: TYLENOL PO PRN ×2 (10:17→16:52)
[2018-06-20] MEDS: CATAPRES PO SCH ×2 (10:17→21:32)
[2018-06-20] MEDS: NORVASC PO SCH (10:18)
[2018-06-20] MEDS: HEPARIN SUB-Q SCH ×2 (10:39→21:32)
--- NOTE | 2018-06-20 15:35 | Progress Note ---
Assessment and Plan Abdominal pain - likely from gall blabber sludge - will consult GS for further recommendation Nausea vomiting and diarrhea - symptom improved now, likely secondary to above DM with hyperglecemia, - will cont SSI for now, check A1c, hold home metformin Hypertensive urgency, - BP was 202/97 on admission DVt Px, lovenox Subjective Date of service: 06/20/18 Interval history: Patient seen and examined abdominal pain better but tolerating diet, no N/V family at bedside updated Objective - Constitutional Vitals: Vital Signs - 12hr 06/20/18 06/20/18 06/20/18 08:42 08:44 10:17 Temperature 97.6 F Pulse Rate 86 88 Respiratory 18 Rate Blood Pressure 146/85 O2 Sat by Pulse 93 Oximetry 06/20/18 06/20/18 06/20/18 10:18 13:15 13:16 Temperature 97.3 F L Pulse Rate 88 82 Respiratory 18 Rate Blood Pressure 144/69 O2 Sat by Pulse 96 Oximetry General appearance: Present: no acute distress, obese - EENT Eyes: PERRL, EOM intact ENT: hearing intact, clear oral mucosa Ears: bilateral: normal - Neck Neck: supple, normal ROM - Respiratory Respiratory effort: normal Respiratory: bilateral: CTA - Cardiovascular Rhythm: regular Heart Sounds: Present: S1 & S2. Absent: gallop, rub Extremities: pulses intact, No edema, normal color, Full ROM - Gastrointestinal General gastrointestinal: Present: soft, non-distended, normal bowel sounds Localized gastrointestinal: tender: RUQ - Integumentary Integumentary: clear, warm, dry - Musculoskeletal Musculoskeletal: 1, strength equal bilaterally - Neurologic Neurologic: moves all extremities - Psychiatric Psychiatric: memory intact, appropriate mood/affect, intact judgment & insight - Labs CBC & Chem 7: 06/18/18 21:13 06/21/18 06:11 Labs: Abnormal lab results 06/19/18 06/19/18 06/20/18 Range/Units 16:05 21:59 08:38 POC Glucose 247 H 257 H 220 H (70-105) 06/20/18 Range/Units 11:35 POC Glucose 254 H (70-105)
[2018-06-21] MEDS: APRESOLINE PO SCH ×3 (05:54→22:17)
[2018-06-21] MEDS: NACL 0.9% 1000 ML 1,000 ML IV SCH ×3 (05:56→17:11)
[2018-06-21 06:54] LABS: BUN/Creatinine Ratio 12; Blood Urea Nitrogen 6 mg/dL (7-17); Calcium 8.6 mg/dL (8.4-10.2); Hemolysis Index 1
[2018-06-21] MEDS: HumuLIN R SUB-Q SCH ×4 (08:44→22:18)
[2018-06-21] MEDS: NORVASC PO SCH (09:38)
[2018-06-21] MEDS: CATAPRES PO SCH ×2 (09:39→22:17)
[2018-06-21] MEDS: HEPARIN SUB-Q SCH ×2 (09:39→22:17)
[2018-06-21] MEDS: TYLENOL PO PRN ×2 (10:46→15:25)
[2018-06-21] MEDS ORDERED: IBUPROFEN PO PRN (16:57)
--- NOTE | 2018-06-21 16:58 | Progress Note ---
Assessment and Plan Abdominal pain - likely from gall blabber sludge - Consulted GS for further recommendation, will wait for recommendation Nausea vomiting and diarrhea - symptom improved now, likely secondary to above DM with hyperglecemia, - will cont SSI for now, check A1c, hold home metformin Hypertensive urgency, - BP was 202/97 on admission - cont current meds and adjust as needed Tension Headache, as needed mitrin DVt Px, lovenox Physical exam: General appearance: Present: no acute distress, obese - EENT Eyes: PERRL, EOM intact ENT: hearing intact, clear oral mucosa Ears: bilateral: normal - Neck Neck: supple, normal ROM - Respiratory Respiratory effort: normal Respiratory: bilateral: CTA - Cardiovascular Rhythm: regular Heart Sounds: Present: S1 & S2. Absent: gallop, rub Extremities: pulses intact, No edema, normal color, Full ROM - Gastrointestinal General gastrointestinal: Present: soft, non-distended, normal bowel sounds Localized gastrointestinal: tender: RUQ - Integumentary Integumentary: clear, warm, dry - Musculoskeletal Musculoskeletal: 1, strength equal bilaterally - Neurologic Neurologic: moves all extremities - Psychiatric Psychiatric: memory intact, appropriate mood/affect, intact judgment & insight Subjective Date of service: 06/21/18 Interval history: Patient seen and examined abdominal pain better and tolerating diet, no N/V C/o headache family at bedside updated Objective - Constitutional Vitals: Vital Signs - 12hr 06/21/18 06/21/18 06/21/18 09:29 09:30 09:38 Temperature 98.1 F Pulse Rate 90 78 Pulse Rate [ Apical] Pulse Rate [ Left Dorsalis Pedis] Pulse Rate [ Left Radial] Pulse Rate [ Right Dorsalis Pedis] Pulse Rate [ Right Radial] Respiratory 18 Rate Blood Pressure 154/68 154/68 O2 Sat by Pulse 98 Oximetry 06/21/18 06/21/18 06/21/18 09:39 10:00 12:31 Temperature Pulse Rate 78 81 Pulse Rate [ 78 Apical] Pulse Rate [ 78 Left Dorsalis Pedis] Pulse Rate [ 78 Left Radial] Pulse Rate [ 78 Right Dorsalis Pedis] Pulse Rate [ 78 Right Radial] Respiratory 19 18 Rate Blood Pressure 154/68 137/70 O2 Sat by Pulse 98 94 Oximetry 06/21/18 12:33 Temperature 98.7 F Pulse Rate Pulse Rate [ Apical] Pulse Rate [ Left Dorsalis Pedis] Pulse Rate [ Left Radial] Pulse Rate [ Right Dorsalis Pedis] Pulse Rate [ Right Radial] Respiratory Rate Blood Pressure O2 Sat by Pulse Oximetry - Labs CBC & Chem 7: 06/18/18 21:13 06/21/18 06:11 Labs: Abnormal lab results 06/20/18 06/20/18 06/21/18 Range/Units 16:39 21:59 06:11 BUN 6 L (7-17) mg/dL Creatinine 0.5 L (0.7-1.2) mg/dL Glucose 214 H (65-100) mg/dL POC Glucose 198 H 203 H (70-105) 06/21/18 06/21/18 Range/Units 08:04 12:33 BUN (7-17) mg/dL Creatinine (0.7-1.2) mg/dL Glucose (65-100) mg/dL POC Glucose 216 H 240 H (70-105)
--- NOTE | 2018-06-21 17:05 | Consultation ---
History of Present Illness Consult date: 06/21/18 Reason for consult: other (N/V/abdominal pain) Requesting physician: ABIGAIL AVILES Chief complaint: N/V/Abd pain - History of present illness History of present illness: 62yo F with acute onset of N/V and later abdominal pain. Pt reports that two days ago she woke up in the morning and soon after began to have nausea and vomiting. No abdominal pain at this time. This has never happened before. Later in the morning, she tried to have some oatmeal and toast. Around lunch time, she had N/V again and now she was having abdominal pain and diarrhea as well. Denies any history of postprandial symptoms. After arrival to ED, her symptoms resolved and have not returned. No issues yesterday. Able to tolerated regular diet today. Does feel flu like symptoms today - PURI, congestion. No exposure to sick contacts. No travel. No meals where others got sick as well. Did start taking Metformin the day before the symptoms began. Past History Past Medical History: diabetes, hypertension Past Surgical History: Social history: denies: smoking, alcohol abuse Family history: no significant family history Medications and Allergies Allergies Allergy/AdvReac Type Severity Reaction Status Date / Time No Known Allergies Allergy Unverified 04/18/14 11:21 Home Medications Medication Instructions Recorded Confirmed Last Taken Type AtorvaSTATin [Lipitor] 20 mg PO QHS #30 tab 06/16/18 06/19/18 06/17/18 Rx Metformin HCl 1,000 mg PO BID #60 tablet 06/16/18 06/19/18 06/18/18 Rx amLODIPine [Norvasc] 10 mg PO DAILY #30 tablet 06/16/18 06/19/18 06/18/18 Rx cloNIDine [Catapres] 0.1 mg PO BID #60 tablet 06/16/18 06/19/18 06/18/18 Rx hydrALAZINE [Apresoline TAB] 100 mg PO Q8HR #90 tab 06/16/18 06/19/18 06/18/18 Rx Active Meds: Active Medications Acetaminophen (Tylenol) 650 mg PO Q4H PRN PRN Reason: Pain MILD(1-3)/Fever >100.5/PURI Last Admin: 06/21/18 15:25 Dose: 650 mg Documented by: Amlodipine Besylate (Norvasc) 10 mg PO DAILY [facility] Last Admin: 06/21/18 09:38 Dose: 10 mg Documented by: Atorvastatin Calcium (Lipitor) 20 mg PO QHS [facility] Last Admin: 06/20/18 21:32 Dose: 20 mg Documented by: Clonidine HCl (Catapres) 0.1 mg PO BID [facility] Last Admin: 06/21/18 09:39 Dose: 0.1 mg Documented by: Dextrose (D50w (25gm) Syringe) 50 ml IV PRN PRN PRN Reason: Hypoglycemia Heparin Sodium (Porcine) (Heparin) 5,000 unit SUB-Q Q12HR [facility] Last Admin: 06/21/18 09:39 Dose: 5,000 unit Documented by: Hydralazine HCl (Apresoline) 100 mg PO Q8HR [facility] Last Admin: 06/21/18 15:24 Dose: 100 mg Documented by: Sodium Chloride (Nacl 0.9% 1000 Ml) 1,000 mls @ 125 mls/hr IV DIRECT [facility] Last Admin: 06/21/18 08:45 Dose: 125 mls/hr Documented by: Ibuprofen (Motrin) 800 mg PO Q8H PRN PRN Reason: Pain, Moderate (4-6) Last Admin: 06/21/18 17:04 Dose: 800 mg Documented by: Insulin Human Regular (Humulin R) [address] units SUB-[address] [facility]; Protocol Last Admin: 06/21/18 13:09 Dose: 3 units Documented by: Insulin Human Regular (Humulin R) [facility] Protocol Last Admin: 06/20/18 23:24 Dose: Not Given Documented by: Ondansetron HCl (Zofran) 4 mg IV Q8H PRN PRN Reason: Nausea And Vomiting Promethazine HCl (Phenergan) 25 mg PO Q6H PRN PRN Reason: Nausea And Vomiting Last Admin: 06/19/18 06:09 Dose: 25 mg Documented by: Review of Systems - Constitutional no fever, no chills, no chronic pain - EENT Ears, nose, mouth and throat: nasal congestion, sinus pressure - Cardiovascular no chest pain - Respiratory congestion, no cough - Gastrointestinal abdominal pain, nausea, vomiting, diarrhea - Genitourinary Genitourinary: no dysuria - Integumentary no rash, no sores - Neurological headaches Exam Vital Signs BP Pulse Ox 202/94 95 06/18/18 19:01 06/18/18 19:01 - General physical appearance Positive: no distress, no pain - Eyes Negative: icteric - Respiratory Positive: normal expansion, normal respiratory effort, clear to auscultation - Cardiovascular Rhythm: regular - Abdomen Abdomen: Present: soft, bowel sounds hypoactive. Absent: tender, distended, rebound, guarding, rigid - Integumentary no rash, no growths, no abnormal pigmentation - Neurologic Neurologic: alert and oriented to time, place and person - Psychiatric Psychiatric: appropriate mood/affect, intact judgment & insight Results - Labs 06/18/18 21:13 06/21/18 06:11 Abnormal lab results 06/20/18 06/20/18 06/21/18 Range/Units 16:39 21:59 06:11 BUN 6 L (7-17) mg/dL Creatinine 0.5 L (0.7-1.2) mg/dL Glucose 214 H (65-100) mg/dL POC Glucose 198 H 203 H (70-105) 06/21/18 06/21/18 Range/Units 08:04 12:33 BUN (7-17) mg/dL Creatinine (0.7-1.2) mg/dL Glucose (65-100) mg/dL POC Glucose 216 H 240 H (70-105) Diabetes panel 06/21/18 Range/Units 06:11 Sodium 141 (137-145) mmol/L Potassium 3.8 (3.6-5.0) mmol/L Chloride 103.7 (98-107) mmol/L Carbon Dioxide 24 (22-30) mmol/L BUN 6 L (7-17) mg/dL Creatinine 0.5 L (0.7-1.2) mg/dL Glucose 214 H (65-100) mg/dL Calcium 8.6 (8.4-10.2) mg/dL Calcium panel 06/21/18 Range/Units 06:11 Calcium 8.6 (8.4-10.2) mg/dL Pituitary panel 06/21/18 Range/Units 06:11 Sodium 141 (137-145) mmol/L Potassium 3.8 (3.6-5.0) mmol/L Chloride 103.7 (98-107) mmol/L Carbon Dioxide 24 (22-30) mmol/L BUN 6 L (7-17) mg/dL Creatinine 0.5 L (0.7-1.2) mg/dL Glucose 214 H (65-100) mg/dL Calcium 8.6 (8.4-10.2) mg/dL Adrenal panel 06/21/18 Range/Units 06:11 Sodium 141 (137-145) mmol/L Potassium 3.8 (3.6-5.0) mmol/L Chloride 103.7 (98-107) mmol/L Carbon Dioxide 24 (22-30) mmol/L BUN 6 L (7-17) mg/dL Creatinine 0.5 L (0.7-1.2) mg/dL Glucose 214 H (65-100) mg/dL Calcium 8.6 (8.4-10.2) mg/dL - Imaging CT scan - abdomen: report reviewed, image reviewed CT scan - pelvis: report reviewed, image reviewed US - abdomen: report reviewed, image reviewed Assessment and Plan - Patient Problems (1) Nausea vomiting and diarrhea Current Visit: Yes Status: Acute Plan to address problem: Pt stable. History not consistent with gallbladder disease. More likely related to new metformin medication or viral illness. Do not recommend surgery at this time. Diet as tolerated. Please call with questions. Time=30min
[2018-06-22] MEDS: NACL 0.9% 1000 ML 1,000 ML IV SCH (02:39)
[2018-06-22] MEDS: APRESOLINE PO SCH ×2 (06:11→14:10)
[2018-06-22] MEDS: HumuLIN R SUB-Q SCH ×3 (09:51→18:08)
[2018-06-22] MEDS: HEPARIN SUB-Q SCH (09:52)
[2018-06-22] MEDS: CATAPRES PO SCH (09:52)
[2018-06-22] MEDS: NORVASC PO SCH (09:52)
[2018-06-22 12:26] VITALS: BP 148/82
--- NOTE | 2018-06-22 15:06 | Discharge Summary ---
Providers - Providers Date of Admission: 06/19/18 03:02 Date of discharge: 06/22/18 Attending physician: ABIGAIL AVILES 06/20/18 15:28 Consult to Physician [CONS] Routine Comment: Consulting Provider: ISADORA CAMPOS Physician Instructions: Reason For Exam: Gall bladder sludge Primary care physician: APPLE PICKER Hospitalization Condition: Fair Hospital course: The patient is 62-year-old female presenting with chief complaint of nausea vomiting and diarrhea after she had eaten some oatmeal toast. On admission she also noted to have elevated BP> She was admitted for further evaluation and management. CT abdoemn/pelvis: Fatty infiltration of the liver. Increased density dependently in the gallbladder. I suspect cholelithiasis. This could be confirmed with ultrasound if clinically indicated. Small renal cortical cysts visualized. Small hiatal hernia is present. Small umbilical hernia is present. US abdomen: Fatty liver and possible slight gallbladder sludge again noted without acute sonographic abnormality, as described. Please correlate. CT head: There are chronic involutional and ischemic changes. There is no acute abnormality. There has been no change since the prior examination. . Discharge diagnosis and management: Abdominal pain, resolved - Abdominal US showed gall blabber sludge, CT abdomen showed cholelithiasis. Consulted GS for further recommendation, per surgeon not a cause for abdominal pain - symptom likely viral gastroenteritis vs from metformin - her symptom resolved with supportive care, will cont outpt follow up. Nausea vomiting and diarrhea - symptom improved now, likely secondary to above DM with hyperglecemia, - managed with SSI for now, started on glipizide Hypertensive urgency, CT head no acute change - BP was 202/97 on admission, stable on discharge - cont current meds and adjusted as needed Tension Headache, as needed motrin DVt Px, lovenox Physical exam: General appearance: Present: no acute distress, obese - EENT Eyes: PERRL, EOM intact ENT: hearing intact, clear oral mucosa Ears: bilateral: normal - Neck Neck: supple, normal ROM - Respiratory Respiratory effort: normal Respiratory: bilateral: CTA - Cardiovascular Rhythm: regular Heart Sounds: Present: S1 & S2. Absent: gallop, rub Extremities: pulses intact, No edema, normal color, Full ROM - Gastrointestinal General gastrointestinal: Present: soft, non-distended, normal bowel sounds Localized gastrointestinal: tender: RUQ - Integumentary Integumentary: clear, warm, dry - Musculoskeletal Musculoskeletal: 1, strength equal bilaterally - Neurologic Neurologic: moves all extremities - Psychiatric Psychiatric: memory intact, appropriate mood/affect, intact judgment & insight Disposition: DC-01 TO HOME OR SELFCARE Time spent for discharge: 34 minutes Core Measure Documentation - Palliative Care Palliative Care/ Comfort Measures: Not Applicable - Core Measures Any of the following diagnoses?: none Exam - Constitutional Vitals: Temp Pulse Resp BP Pulse Ox 98.9 F 86 20 148/82 93 06/22/18 12:24 06/22/18 12:24 06/22/18 12:24 06/22/18 12:24 06/22/18 12:24 Plan Activity: advance as tolerated Weight Bearing Status: Weight Bear as Tolerated Diet: diabetic Follow [facility] MD KACY [Referring] - 3-5 Days Prescriptions: glipiZIDE [Glucotrol] 5 mg PO QDDIAB #60 tablet
[2018-06-23] MEDS ORDERED: GLUCOTROL PO SCH (08:00)
== END 2018-06-22 16:53 | disposition home or self-care (01) | DRG 391 ==
LOC: ED 17:15 → 4A 06-19 03:02
PROVIDERS: ADMIT Internal Medicine; ATTEND Internal Medicine
DX: K52.9 Noninfective gastroenteritis and colitis, unspecified (principal); E11.10 Type 2 diabetes mellitus with ketoacidosis without coma; I16.0 Hypertensive urgency; G44.209 Tension-type headache, unspecified, not intractable; I10 Essential (primary) hypertension; T38.3X5A Adverse effect of insulin and oral hypoglycemic [antidiabetic] drugs, initial encounter; Z79.899 Other long term (current) drug therapy; Y92.89 Other specified places as the place of occurrence of the external cause
CPT/HCPCS: 36415; 70450; 74177; 76700; 80048; 80053; 81001; 82140; 82550; 82553; 82805; 82962; 83690; 83735; 84100; 84484; 85025; 87116; 93005; 93010; 96374; 96375; 99285; G0378; A9270-GY; J1644; J1815; J2405; J2765; J3475; J7030; Q0169; Q9967

== ENCOUNTER 2018-12-13 10:07 | Inpatient (IN) | payer OTHER, SELFPAY ==
--- NOTE | 2018-12-13 10:56 | Emergency Department Report ---
HPI - General Chief Complaint: Neuro Symptoms/Deficit Time Seen by Provider: 12/13/18 10:32 - HPI HPI: 63-year-old -British female presents to the emergency department from home with a complaint of a possible stroke. Patient says that she woke up this morning around 5 AM and was feeling generalized weakness. She also noticed that she was having some slurred speech and difficulty speaking. She denies any headache but says she has some blurry vision. She has a past medical history of insulin-dependent diabetes, hypertension and her blood sugar through triage is 234 on Accu-Chek. She did not take anything for her symptoms prior to present ation today. Her primary care physician is Dr. Rowland. ED Past Medical Hx - Past Medical History Hx Hypertension: Yes Hx Heart Attack/AMI: No Hx Congestive Heart Failure: No Hx Diabetes: Yes Hx Deep Vein Thrombosis: No Hx Liver Disease: No Hx Asthma: No Hx COPD: No Hx HIV: No - Surgical History Hx Coronary Stent: No Hx Open Heart Surgery: No Hx Pacemaker: No Hx Internal Defibrillator: No Hx Cholecystectomy: No Hx Appendectomy: No Hx Breast Surgery: No - Social History Smoking Status: Never Smoker Substance Use Type: None - Medications Home Medications: Home Medications Medication Instructions Recorded Confirmed Last Taken Type AtorvaSTATin [Lipitor] 20 mg PO QHS #30 tab 06/16/18 12/13/18 12/12/18 Rx amLODIPine [Norvasc] 10 mg PO DAILY #30 tablet 06/16/18 12/13/18 12/12/18 Rx Valsartan [Diovan] 160 mg PO QDAY 12/13/18 12/13/18 12/12/18 History hydrALAZINE [Apresoline TAB] 50 mg PO Q8HR 12/13/18 12/13/18 12/12/18 History metFORMIN [Glucophage] 500 mg PO BID 12/13/18 12/13/18 12/12/18 History ED Review of Systems ROS: Stated complaint: SLURRED SPEECH Other details as noted in HPI Comment: All other systems reviewed and negative Constitutional: weakness. denies: fever Eyes: vision change. denies: eye pain ENT: denies: ear pain, throat pain Respiratory: denies: cough, shortness of breath Cardiovascular: denies: chest pain, palpitations Gastrointestinal: denies: abdominal pain, vomiting Genitourinary: denies: dysuria, discharge Musculoskeletal: denies: back pain, arthralgia Skin: denies: rash, lesions Neurological: weakness, other (slurred speech, difficulty with speech). denies: headache Physical Exam - Physical Exam Vital Signs: Vital Signs 12/13/18 10:24 Temperature 98.1 F Pulse Rate 82 Respiratory 18 Rate Blood Pressure 173/85 O2 Sat by Pulse 96 Oximetry Physical Exam: GENERAL: The patient is well-developed well-nourished. HENT: Normocephalic. Atraumatic. Patient has moist mucous membranes. EYES: Extraocular motions are intact. Pupils equal reactive to light bilaterally. NECK: Supple. Trachea is midline. CHEST/LUNGS: Clear to auscultation. There is no respiratory distress noted. HEART/CARDIOVASCULAR: Regular. There is no tachycardia. There is no murmur. ABDOMEN: Abdomen is soft, nontender. Patient has normal bowel sounds. There is no abdominal distention. SKIN: Skin is warm and dry. NEURO: The patient is awake, alert, and oriented. The patient is cooperative. Patient has some decreased sensation to the left side of the face, arm and leg when compared to the right. There is a very mild left-sided nasolabial fold paresis. There is some slurred speech. MUSCULOSKELETAL: There is no tenderness or deformity. There is no limitation range of motion. There is no evidence of acute injury. ED Course Vital Signs 12/13/18 10:24 Temperature 98.1 F Pulse Rate 82 Respiratory 18 Rate Blood Pressure 173/85 O2 Sat by Pulse 96 Oximetry - Consultations Consultation #1: 12/13/18 11:[address] Purcell, telemedicine neurologist, who evaluated the patient and agrees with the patient may have had a minor stroke. However she is outside the window for TPA as she woke up with the symptoms this morning. He feels the patient needs admission for further stroke workup but does not require any emergent CT angiography studies at this time. 12/13/18 11:05 ED Medical Decision Making - Lab Data Result diagrams: 12/13/18 11:09 12/13/18 11:09 - EKG Data -: EKG Interpreted by [facility] EKG shows normal: sinus rhythm, axis (left axis deviation), intervals (mild prolongation of SC interval), QRS complexes, ST-T waves (flattened T waves) Rate: normal - EKG Data When compared to previous EKG there are: no significant change Interpretation: unchanged when compared t (06/19/18) - Radiology Data Radiology results: report reviewed CT head/brain wo con INDICATION: neuro deficits <6hrs or sx present upon awakening. TECHNIQUE: Routine CT head without contrast. All CT scans at this location are performed using CT dose reduction for ALARA by means of automated exposure control. COMPARISON: Head CT on 06/18/2018. FINDINGS: BRAIN / INTRACRANIAL CONTENTS: No acute hemorrhage, mass effect, midline shift, or hydrocephalus. No appreciable acute large territorial or lacunar infarct. Stable chronic lacunar infarcts in the basal ganglia. Stable chronic infarct in the inferior medial right cerebellar hemisphere. ORBITS: No significant abnormality of visualized orbits. SINUSES / MASTOIDS: No significant abnormality of visualized sinuses and mastoid air cells. ADDITIONAL FINDINGS: None. IMPRESSION: 1. No acute intracranial abnormality. No adverse change from the prior exam. - Medical Decision Making This patient presents to the emergency department with some feelings of generalized weakness and slurred speech that she woke up with. On examination she also has some subjective decreased sensation to the left side of the face, leg and arm. This gives her an NIH stroke scale of 2. CT of the head did not show any bleed, shift, mass, ischemia or any other acute process. Patient's labs show some hyperglycemia but no signs of diabetic ketoacidosis. After passing a swallow eval, the patient was given some aspirin. Just after the CT scan was completed, she was seen by the telemedicine neurologist. They agree that the patient is not a TPA candidate and does not feel that she needs emergent CT angiography imaging but recommends admission to the hospital for further stroke workup including MRI. Vital signs stable throughout her ED course thus far. It is my attention for this patient to be admitted for further evaluation and treatment and the patient has been presented to the admitting hospitalist, Dr. Rowland. - Differential Diagnosis CVA, TIA, Dysrythmia, DKA Critical Care Time: Yes Critical care time in (mins) excluding proc time.: 31 Critical care attestation.: If time is entered above; I have spent that time in minutes in the direct care of this critically ill patient, excluding procedure time. Critical care time spent on this patient during her initial evaluation, multiple re-evaluations, ordering and interpretation of labs and imaging, discussion with the radiologist, discussion with the telemedicine neurologist and multiple discussions with the patient and her family. Critical Care Time: 31 minutes ED Disposition Clinical Impression: Hyperglycemia CVA (cerebral vascular accident) Qualifiers: CVA mechanism: unspecified Qualified Code(s): I63.9 - Cerebral infarction, unspecified Disposition: DC09 OP ADMIT IP TO THIS HOSP Is pt being admited?: Yes Condition: Serious Referrals: [facility] MD KACY [Primary Care Provider] - 3-5 Days Time of Disposition: 11:56 - Assessment Assessment Interval: Baseline - Level of Consciousness 1a. Level of Consciousness: alert/keenly responsive - LOC Questions 1b. LOC Questions: answers both correctly - LOC Command 1c. LOC Commands: performs tasks correctly - Best Gaze 2. Best Gaze: normal - Visual 3. Visual: no visual loss - Facial Palsy 4. Facial Palsy: normal symmetrical movement - Motor Arm 5a. Motor Arm Left: no drift 5b. Motor Arm Right: no drift - Motor Leg 6a. Motor Leg Left: no drift 6b. Motor Leg Right: no drift - Limb Ataxia 7. Limb Ataxia: absent - Sensory 8. Sensory: mild/moderate sensory loss - Best Language 9. Best Language: no aphasia - Dysarthria 10. Dysarthria: mild/moderate dysarthria - Extinction and Inattention 11. Extinction/Inattention: no abnormality - Scoring Total Score: 2 Stroke Severity: Minor Stroke
--- NOTE | 2018-12-13 10:59 | Consultation ---
History of Present Illness Consult date: 12/13/18 Medications and Allergies Allergies Allergy/AdvReac Type Severity Reaction Status Date / Time No Known Allergies Allergy Unverified 04/18/14 11:21 Home Medications Medication Instructions Recorded Confirmed Last Taken Type AtorvaSTATin [Lipitor] 20 mg PO QHS #30 tab 06/16/18 06/19/18 06/17/18 Rx amLODIPine [Norvasc] 10 mg PO DAILY #30 tablet 06/16/18 06/19/18 06/18/18 Rx cloNIDine [Catapres] 0.1 mg PO BID #60 tablet 06/16/18 06/19/18 06/18/18 Rx hydrALAZINE [Apresoline TAB] 100 mg PO Q8HR #90 tab 06/16/18 06/19/18 06/18/18 Rx glipiZIDE [Glucotrol] 5 mg PO QDDIAB #60 tablet 06/22/18 Unknown Rx Physical Examination - Vital Signs Vital Signs: Vital Signs Temp Pulse Resp BP Pulse Ox 98.1 F 82 18 173/85 96 12/13/18 10:24 12/13/18 10:24 12/13/18 10:24 12/13/18 10:24 12/13/18 10:24 - Assessment Assessment Interval: Baseline - Level of Consciousness 1a. Level of Consciousness: alert/keenly responsive - LOC Questions 1b. LOC Questions: answers both correctly - LOC Command 1c. LOC Commands: performs tasks correctly - Best Gaze 2. Best Gaze: normal - Visual 3. Visual: no visual loss - Facial Palsy 4. Facial Palsy: normal symmetrical movement - Motor Arm 5a. Motor Arm Left: no drift 5b. Motor Arm Right: no drift - Motor Leg 6a. Motor Leg Left: no drift 6b. Motor Leg Right: no drift - Limb Ataxia 7. Limb Ataxia: absent - Sensory 8. Sensory: mild/moderate sensory loss - Best Language 9. Best Language: no aphasia - Dysarthria 10. Dysarthria: mild/moderate dysarthria - Extinction and Inattention 11. Extinction/Inattention: no abnormality - Scoring Total Score: 2 Stroke Severity: Minor Stroke Results - Laboratory Findings Abnormal Lab Findings: Abnormal Labs 12/13/18 10:26 POC Glucose 234 H Assessment and Plan Date of Service 12/13/2018 [facility] Comments: Last time known well: _ 5:00 Door time: _1031 [employer] contacted: _1050 [employer] at bedside: _ 1052 NIHSS assessment time: _1056 consult end time: _11:04 Impression: acute slurred speech and left sided numbness Consistent with Acute Ischemic Stroke Does (not) meet Large Vessel Occlusion (LVO) screening criteria (Aphasia, Neglect, Gaze deviation/preference, Dense hemiparesis, or Visual field deficits on exam), therefore advanced imaging (CTA head and neck and CTP brain) is (not) indicated. Differential Diagnosis: 1. Cardioembolic stroke 2. Small vessel disease/ lacune 3. Thromboembolic, [id number] mechanism 4. Hypercoagulable state-related infarct 5. Transient ischemic attack 6. Thrombotic mechanism, large artery disease tPA decision and other recommendations: _ Patient is not a tPA candidate Head CT did not show any acute hemorrhage. reviewed report (if available) and images Reason: _ last time known well>4.5 hours Patient is not a STEFANIA candidate: _ Thrombectomy not considered since large proximal intracranial vessel occlusion is not suspected. Recommendations dysphagia screen ASA if no contraindications head of bed flat IV fluids NS Stroke work up with: noncontrast brain MRI, head and neck MRA (or CTA), 2D ECHO, lipid panel, HbA1c (Goal LDL<70, HbA1c<7) Physical Therapy/Occupational Therapy/Speech Therapy inpatient neurology consultation Inpatient stroke evaluation as per Neurology/ Internal Medicine Discussed with ED physician/medical staff Please contact [employer] Navigator to reach me if further questio ns/concerns arise. Reason for Stroke Alert and History of Present Illness: _ Patient is a(n) 63 years old female, with history of hypertension, Diabetes Mellitus last known well: 5:00 Was awake, started to feel weak allover and slurred speech. Blood Pressure: 175/96 Blood Glucose: 234 Review of Systems: Constitutional: Negative except as documented in history of present illness. Eye: Negative except as documented in history of present illness. Ear/Nose/Mouth/Throat: Negative except as documented in history of present illness. Respiratory: Negative except as documented in history of present illness. Cardiovascular: Negative except as documented in history of present illness. Gastrointestinal: Negative except as documented in history of present illness. Musculoskeletal: Negative except as documented in history of present illness. Neurologic: Negative except as documented in history of present illness. Examination: NIHSS Details documented in the note ___ 2 Medical Decision Making: - Extensive number of diagnosis or management options are considered above. - Extensive amount of complex data reviewed. - High risk of complication and/or morbidity or mortality are associated with differential diagnostic considerations above. - There may be Uncertain outcome and increased probability of prolonged functional impairment or high probability of severe prolonged functional impairment associated with some of these differential diagnoses. Medical Data Reviewed: 1.Data reviewed include clinical labs, radiology, Medical Tests; 2.Tests results discussed w/performing or interpreting physician; 3.Obtaining/reviewing old medical records; 4.Obtaining case history from another source; 5.Independent review of image, tracing or specimen. When possible Patient/family were informed the Neurology Consult would happen via TeleHealth consult by way of interactive audio and video telecommunications and consented to receiving care in this manner. Case discussed with the Medical staff. Critical Care notation: I was called to see this critical patient emergently. I personally evaluated this critical patient for acute stroke evaluation and determining their eligibility for IV Alteplase and interventional therapies. I have spent approximately _12_ minutes with the patient, including time at bedside, time discussing the case with other physicians, reviewing plan of care, and time independently reviewing the records and scans.
[2018-12-13] MEDS ORDERED: BABY ASPIRIN PO ONE (11:03)
--- NOTE | 2018-12-13 11:18 | Cat Scan Report ---
CT head/brain wo con INDICATION: neuro deficits <6hrs or sx present upon awakening. TECHNIQUE: Routine CT head without contrast. All CT scans at this location are performed using CT dos e reduction for ALARA by means of automated exposure control. COMPARISON: Head CT on 06/18/2018. FINDINGS: BRAIN / INTRACRANIAL CONTENTS: No acute hemorrhage, mass effect, midline shift, or hydrocephalus. No appreciable acute large territorial or lacunar infarct. Stable chronic lacunar infarcts in the basal ganglia. Stable chronic infarct in the inferior medial right cerebellar hemisphere. ORBITS: No significant abnormality of visualized orbits. SINUSES / MASTOIDS: No significant abnormality of visualized sinuses and mastoid air cells. ADDITIONAL FINDINGS: None. IMPRESSION: 1. No acute intracranial abnormality. No adverse change from the prior exam. CRITICAL RESULT: Time of Discovery: 10:15 AM Time of Communication: 10:16 AM central time Licensed Practitioner Receiving Report: Dr. Montiel Read Back Performed: Yes. Signer Name: Bhupinder Cohen MD Signed: 12/13/2018 11:13 AM Workstation Name: [id number]
[2018-12-13 11:30] LABS: Basophils # (Auto) 0.1 K/mm3 (0.0-0.1); Basophils % (Auto) 0.8 % (0.0-1.8); Eosinophils % (Auto) 0.4 % (0.0-4.3); Hematocrit 37.8 % (30.3-42.9); Hemoglobin 12.3 gm/dl (10.1-14.3); Lymphocytes # (Auto) 2.1 K/mm3 (1.2-5.4); Mean Corpuscular HGB Conc 33 % (30-34); Mean Corpuscular Volume 82 fl (79-97); Monocytes # (Auto) 0.2 K/mm3 (0.0-0.8); Monocytes % (Auto) 3.3 % (0.0-7.3); Platelet Count 287 K/mm3 (140-440); Red Blood Count 4.62 M/mm3 (3.65-5.03); Red Cell Distribution Width 14.8 % (13.2-15.2)
[2018-12-13 11:46] LABS: INR 0.94 (0.87-1.13); Partial Thromboplastin Time 29.2 Sec. (24.2-36.6)
[2018-12-13 11:47] LABS: BUN/Creatinine Ratio 14; Blood Urea Nitrogen 7 mg/dL (7-17); Calcium 9.6 mg/dL (8.4-10.2); Hemolysis Index 53
[2018-12-13 11:50] LABS: Alanine Aminotransferase 8 units/L (7-56); Albumin 4.3 g/dL (3.9-5)
[2018-12-13 11:52] LABS: Bilirubin,Direct < 0.2 mg/dL (0-0.2)
--- NOTE | 2018-12-13 14:10 | History and Physical Report ---
History of Present Illness Date of examination: 12/13/18 Date of admission: 12/13/2018 Chief complaint: Slurred speech since 5 AM History of present illness: 63-year-old -Citizen Of [place] female well known to me from the office comes in for her slurred speech since 5 AM. But no weakness in both upper and lower extremities. No seizures or syncope. Slurred speech persisted in the emergency room. Code stroke was called. Patient blood glucose was around 234. No chest pain or shortness of breath. Able to walk. Telemetry neurology consulted Past Medical History Hypertension: Yes Diabetes: Yes Surgical History No Social History Smoking Status: Never Smoker Substance Use Type: None Family Hx Htn Medications Home Medications: Home Medications Medication Instructions Recorded Confirmed Last Taken Type AtorvaSTATin [Lipitor] 20 mg PO QHS #30 tab 06/16/18 12/13/18 12/12/18 Rx amLODIPine [Norvasc] 10 mg PO DAILY #30 tablet 06/16/18 12/13/18 12/12/18 Rx Valsartan [Diovan] 160 mg PO QDAY 12/13/18 12/13/18 12/12/18 History hydrALAZINE [Apresoline TAB] 50 mg PO Q8HR 12/13/18 12/13/18 12/12/18 History metFORMIN [Glucophage] 500 mg PO BID 12/13/18 12/13/18 12/12/18 History Review of Systems ROS: Stated complaint: SLURRED SPEECH Other details as noted in HPI Comment: All other systems reviewed and negative Constitutional: weakness. denies: fever Eyes: vision change. denies: eye pain ENT: denies: ear pain, throat pain Respiratory: denies: cough, shortness of breath Cardiovascular: denies: chest pain, palpitations Gastrointestinal: denies: abdominal pain, vomiting Genitourinary: denies: dysuria, discharge Musculoskeletal: denies: back pain, arthralgia Skin: denies: rash, lesions Neurological: weakness, other (slurred speech, difficulty with speech). denies: headache Medications and Allergies Allergies Allergy/AdvReac Type Severity Reaction Status Date / Time No Known Allergies Allergy Unverified 04/18/14 11:21 Home Medications Medication Instructions Recorded Confirmed Last Taken Type AtorvaSTATin [Lipitor] 20 mg PO QHS #30 tab 06/16/18 12/13/18 12/12/18 Rx amLODIPine [Norvasc] 10 mg PO DAILY #30 tablet 06/16/18 12/13/18 12/12/18 Rx Valsartan [Diovan] 160 mg PO QDAY 12/13/18 12/13/18 12/12/18 History hydrALAZINE [Apresoline TAB] 50 mg PO Q8HR 12/13/18 12/13/18 12/12/18 History metFORMIN [Glucophage] 500 mg PO BID 12/13/18 12/13/18 12/12/18 History Exam - Constitutional Vitals: Temp Pulse Resp BP Pulse Ox 98.1 F 74 16 177/78 96 12/13/18 10:24 12/13/18 12:34 12/13/18 12:34 12/13/18 12:34 12/13/18 10:24 General appearance: Present: no acute distress, well-nourished - EENT Eyes: Present: PERRL ENT: hearing intact, clear oral mucosa - Neck Neck: Present: supple, normal ROM - Respiratory Respiratory effort: normal Respiratory: bilateral: CTA - Cardiovascular Heart rate: 82 Rhythm: regular Heart Sounds: Present: S1 & S2. Absent: rub, click - Extremities Extremities: no ischemia, pulses intact, pulses symmetrical, No edema Peripheral Pulses: within normal limits - Abdominal General gastrointestinal: Present: soft, non-tender, non-distended, normal bowel sounds Female genitourinary: Present: normal - Rectal Rectal Exam: deferred - Integumentary Integumentary: Present: clear, warm, dry - Musculoskeletal Musculoskeletal: strength equal bilaterally, other (slurred speech present) - Psychiatric Psychiatric: appropriate mood/affect, intact judgment & insight - Neurologic Neurologic: CNII-XII intact, focal deficits (no focal deficits), moves all extremities Results - Labs CBC & Chem 7: 12/13/18 11:09 12/13/18 11:09 Labs: Laboratory Last Values WBC 6.9 K/mm3 (4.5-11.0) 12/13/18 11:09 RBC 4.62 M/mm3 (3.65-5.03) 12/13/18 11:09 Hgb 12.3 gm/dl (10.1-14.3) 12/13/18 11:09 Hct 37.8 % (30.3-42.9) 12/13/18 11:09 MCV 82 fl (79-97) 12/13/18 11:09 MCH 27 pg (28-32) L 12/13/18 11:09 MCHC 33 % (30-34) 12/13/18 11:09 RDW 14.8 % (13.2-15.2) 12/13/18 11:09 Plt Count 287 K/mm3 (140-440) 12/13/18 11:09 Lymph % (Auto) 30.0 % (13.4-35.0) 12/13/18 11:09 [place] % (Auto) 3.3 % (0.0-7.3) 12/13/18 11:09 Eos % (Auto) 0.4 % (0.0-4.3) 12/13/18 11:09 Baso % (Auto) 0.8 % (0.0-1.8) 12/13/18 11:09 Lymph # 2.1 K/mm3 (1.2-5.4) 12/13/18 11:09 [place] # 0.2 K/mm3 (0.0-0.8) 12/13/18 11:09 Eos # 0.0 K/mm3 (0.0-0.4) 12/13/18 11:09 Baso # 0.1 K/mm3 (0.0-0.1) 12/13/18 11:09 Seg Neutrophils % 65.5 % (40.0-70.0) 12/13/18 11:09 Seg Neutrophils # 4.5 K/mm3 (1.8-7.7) 12/13/18 11:09 PT 12.3 Sec. (12.2-14.9) 12/13/18 11:09 INR 0.94 (0.87-1.13) 12/13/18 11:09 APTT 29.2 Sec. (24.2-36.6) 12/13/18 11:09 15.3 Sec. (15.1-19.6) 12/13/18 11:09 VBG pH 7.370 (7.320-7.420) 12/13/18 11:09 Sodium 139 mmol/L (137-145) 12/13/18 11:09 Potassium 4.5 mmol/L (3.6-5.0) 12/13/18 11:09 Chloride 99.7 mmol/L (98-107) 12/13/18 11:09 Carbon Dioxide 25 mmol/L (22-30) 12/13/18 11:09 19 mmol/L 12/13/18 11:09 BUN 7 mg/dL (7-17) 12/13/18 11:09 0.5 mg/dL (0.7-1.2) L 12/13/18 11:09 Estimated GFR > 60 ml/min 12/13/18 11:09 14 % 12/13/18 11:09 Glucose 227 mg/dL (65-100) H 12/13/18 11:09 POC Glucose 234 (70-105) H 12/13/18 10:26 Calcium 9.6 mg/dL (8.4-10.2) 12/13/18 11:09 0.40 mg/dL (0.1-1.2) 12/13/18 11:09 < 0.2 mg/dL (0-0.2) 12/13/18 11:09 AST 9 units/L (5-40) 12/13/18 11:09 ALT 8 units/L (7-56) 12/13/18 11:09 99 units/L (35-129) 12/13/18 11:09 < 0.010 ng/mL (0.00-0.029) 12/13/18 11:09 7.9 g/dL (6.3-8.2) 12/13/18 11:09 4.3 g/dL (3.9-5) 12/13/18 11:09 1.2 % 12/13/18 11:09 TSH 1.750 mlU/mL (0.270-4.200) 12/13/18 11:09 Short CBC 12/13/18 Range/Units 11:09 WBC 6.9 (4.5-11.0) K/mm3 Hgb 12.3 (10.1-14.3) gm/dl Hct 37.8 (30.3-42.9) % Plt Count 287 (140-440) K/mm3 BMP 12/13/18 11:09 Sodium 139 Potassium 4.5 Chloride 99.7 Carbon Dioxide 25 BUN 7 Creatinine 0.5 L Glucose 227 H Calcium 9.6 Cardiac Enzymes 12/13/18 Range/Units 11:09 Troponin T < 0.010 (0.00-0.029) ng/mL Liver Function 12/13/18 Range/Units 11:09 Total Bilirubin 0.40 (0.1-1.2) mg/dL Direct Bilirubin < 0.2 (0-0.2) mg/dL AST 9 (5-40) units/L ALT 8 (7-56) units/L Alkaline Phosphatase 99 (35-129) units/L Albumin 4.3 (3.9-5) g/dL Urine 12/13/18 Range/Units 19:15 Urine Color Straw (Yellow) Urine pH 6.0 (5.0-7.0) Ur Specific [place] 1.008 (1.003-1.030) Urine Protein <15 mg/dl (Negative) mg/dL Urine Glucose (UA) Neg (Negative) mg/dL - Imaging and Cardiology EKG: report reviewed (sinus rhythm heart rate of 83/m nonspecific T-wave abnormalities in anterolateral leads) CT Scan - head: report reviewed (no acute findings) Assessment and Plan Advance Directives: Yes (full code) Plan of care discussed with patient/family: Yes - Patient Problems (1) Acute CVA (cerebrovascular accident) Current Visit: Yes Status: Acute Plan to address problem: stroke workup initiated in the form of MRI MRA and echocardiogram and carotid duplex scan\ Aspirin initiated neurology consult requested\ (2) Hypertension Current Visit: Yes Status: Chronic Qualifiers: Hypertension type: essential hypertension Qualified Code(s): I10 - Essentia l (primary) hypertension Plan to address problem: Continue antihypertensives (3) T2DM (type 2 diabetes mellitus) Current Visit: Yes Status: Chronic Qualifiers: 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
[2018-12-13] MEDS ORDERED: ZOFRAN IV PRN (14:11)
[2018-12-13] MEDS ORDERED: SODIUM CHLORIDE FLUSH SYRINGE 10 ML IV PRN ×2 (14:11→14:13)
[2018-12-13] MEDS ORDERED: HumaLOG SUB-Q ONE (15:12)
--- NOTE | 2018-12-13 15:59 | Magnetic Resonance Report ---
MRI BRAIN WITHOUT CONTRAST, MRA HEAD WITHOUT CONTRAST INDICATION / CLINICAL INFORMATION: stroke. TECHNIQUE: Multiplanar, multi sequential MRI images of the brain. Routine MRA of the head is performed. 3-D/MIP reformats postprocessed. COMPARISON: None available. FINDINGS: MR BRAIN: BRAIN / INTRACRANIAL CONTENTS: There is a small acute lacunar infarct in the right gangliocapsular re gion without associated hemorrhage or adverse mass effect. There is no other acute infarct. There is no hemorrhage, hydrocephalus, midline shift, or herniation. There is no evidence of mass lesion. Ther e is mild calcification of the falx. There is a stable chronic infarct in the right posterior inferio r cerebellar hemisphere. CRANIOCERVICAL JUNCTION: No significant abnormality. VASCULAR FLOW-VOIDS: No significant abnormality. ORBITS: No significant abnormality of visualized orbits. SINUSES / MASTOIDS: No significant abnormality of visualized sinuses and mastoid air cells. ADDITIONAL FINDINGS: None. MRA HEAD: Intracranial vertebral arteries: No significant abnormality. Basilar artery: No significant abnormality. Posterior cerebral arteries: No significant abnormality. Intracranial internal carotid arteries: No significant abnormality. Anterior cerebral arteries: No significant abnormality. Middle cerebral arteries: No significant abnormality. Additional findings: None. IMPRESSION: 1. Small acute lacunar infarct in the right ganglial capsular region without associated hemorrhage or adverse mass effect. 2. No other acute intracranial abnormality. 3. No large vessel occlusion or significant stenosis of the intracranial arteries. Signer Name: Bhupinder Cohen MD Signed: 12/13/2018 3:55 PM Workstation Name: [id number]
--- NOTE | 2018-12-13 16:25 | Vascular Lab Report ---
BILATERAL CAROTID DOPPLER ULTRASOUND INDICATION : stroke TECHNIQUE: Grayscale and color Doppler imaging performed through the neck. COMPARISON: None FINDINGS: Right: There is no significant atherosclerotic disease. Peak systolic velocity in the CCA is 68 cm/ s with end-diastolic velocity of 34 cm/s. Peak systolic velocity in the proximal ICA is 53 cm/s with end-diastolic velocity of 13 cm/s. ICA to CCA ratio is less than 2. There is antegrade flow in the E CA and the vertebral artery. Left: There is no significant atherosclerotic disease. Peak systolic velocity in the CCA is 50 cm/s w ith end-diastolic velocity of 7 cm/s. Peak systolic velocity in the proximal ICA is 54 cm/s with end- diastolic velocity of 14 cm/s. ICA to CCA ratio is less than 2. There is antegrade flow in the ECA a nd the vertebral artery. IMPRESSION: No hemodynamically significant stenosis by NASCET criteria. There is less than 15% lumina l narrowing throughout the carotid systems bilaterally. Signer Name: Freddie Reddy Jr, MD Signed: 12/13/2018 4:20 PM Workstation Name: [id number]
[2018-12-13] MEDS: ASPIRIN PO SCH (17:23)
[2018-12-13] MEDS: APRESOLINE PO SCH ×2 (17:24→21:04)
[2018-12-13] MEDS: DIOVAN PO SCH (17:33)
[2018-12-13] MEDS: GLUCOPHAGE PO SCH ×2 (17:33→21:04)
[2018-12-13] MEDS: NORVASC PO SCH (17:33)
[2018-12-13 19:50] LABS: Bilirubin,Urine NEG (Negative); Blood,Urine SM (Negative); Color,Urine Straw (Yellow); Mucus,Urine FEW /HPF; Protein,Urine <15 mg/dL mg/dL (Negative); Urobilinogen,Urine < 2.0 mg/dL (<2.0)
[2018-12-13] MEDS ORDERED: CEPACOL X STRENGTH MM PRN (20:32)
[2018-12-13] MEDS: SODIUM CHLORIDE FLUSH SYRINGE 10 ML IV SCH (21:12)
[2018-12-14 05:49] LABS: Chol/HDL Ratio 2.87 %
[2018-12-14] MEDS: APRESOLINE PO SCH ×3 (05:51→22:07)
--- NOTE | 2018-12-14 07:39 | Progress Note ---
Assessment and Plan Assessment and plan: Patient is a 63-year-old -[place] woman with a history of type 2 DM and hypertension who presents to [facility] ED with slurred speech since 5 AM. Telemetry neurology consulted, but not tPA candidate because time frame. * MRI/MRA brain without contrast IMPRESSION: 1. Small acute lacunar infarct in the right ganglial capsular region without associated hemorrhage or adverse mass effect. 2. No other acute intracranial abnormality. 3. No large vessel occlusion or significant stenosis of the intracranial arteries. * Carotid US Doppler bilateral: No significant stenosis (1) Acute CVA (cerebrovascular accident) Current Visit: Yes Status: Acute Plan to address problem: stroke workup initiated in the form of MRI MRA and echocardiogram and carotid duplex scan\ Aspirin initiated neurology consult requested (2) Hypertension Current Visit: Yes Status: Chronic Qualifiers: Hypertension type: essential hypertension Qualified Code(s): I10 - Essential (primary) hypertension Plan to address problem: Continue antihypertensives (3) T2DM (type 2 diabetes mellitus) Current Visit: Yes Status: Chronic Qualifiers: Diabetes 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 Follow-up on current diagnosis of CVA. No overnight events reported to me. Patient denies any chest pain, shortness breath, nausea/vomiting or severe headaches. Imaging, nursing note, chart, labs and old chart reviewed. Discussed with patient. Hospitalist Physical - Physical exam Narrative exam: Gen: WDWN, NAD, Awake, Alert, Orientated HEENT: NCAT, EOMI, PERRL, OP Clear Neck: supple, no adenopathy, no thyromegaly, no JVD CVS/Heart: RRR, normal S1S2, pulses present bilaterally Chest/Lungs: CTA B, Symmetrical chest expansion, good air entry bilaterally GI/Abdomen: soft, NTND, good bowel sounds, no guarding or rebound /Bladder: no suprapubic tenderness, no CVA or paraspinal tenderness Extermity/Skin: no c/c/e, no obvious rash MSK: FROM x 4 Neuro: CN 2-12 grossly intact, +moderate dysarthria, +sensory deficit Psych: calm - Constitutional Vitals: Temp Pulse Resp BP Pulse Ox 98.9 F 72 20 128/75 95 12/14/18 05:46 12/14/18 05:46 12/14/18 05:46 12/14/18 05:46 12/14/18 05:46 General appearance: Present: no acute distress, well-nourished Results - Labs CBC & Chem 7: 12/13/18 11:09 12/13/18 11:09 Labs: Laboratory Last Values WBC 6.9 K/mm3 (4.5-11.0) 12/13/18 11:09 RBC 4.62 M/mm3 (3.65-5.03) 12/13/18 11:09 Hgb 12.3 gm/dl (10.1-14.3) 12/13/18 11:09 Hct 37.8 % (30.3-42.9) 12/13/18 11:09 MCV 82 fl (79-97) 12/13/18 11:09 MCH 27 pg (28-32) L 12/13/18 11:09 MCHC 33 % (30-34) 12/13/18 11:09 RDW 14.8 % (13.2-15.2) 12/13/18 11:09 Plt Count 287 K/mm3 (140-440) 12/13/18 11:09 Lymph % (Auto) 30.0 % (13.4-35.0) 12/13/18 11:09 [place] % (Auto) 3.3 % (0.0-7.3) 12/13/18 11:09 Eos % (Auto) 0.4 % (0.0-4.3) 12/13/18 11:09 Baso % (Auto) 0.8 % (0.0-1.8) 12/13/18 11:09 Lymph # 2.1 K/mm3 (1.2-5.4) 12/13/18 11:09 [place] # 0.2 K/mm3 (0.0-0.8) 12/13/18 11:09 Eos # 0.0 K/mm3 (0.0-0.4) 12/13/18 11:09 Baso # 0.1 K/mm3 (0.0-0.1) 12/13/18 11:09 Seg Neutrophils % 65.5 % (40.0-70.0) 12/13/18 11:09 Seg Neutrophils # 4.5 K/mm3 (1.8-7.7) 12/13/18 11:09 PT 12.3 Sec. (12.2-14.9) 12/13/18 11:09 INR 0.94 (0.87-1.13) 12/13/18 11:09 APTT 29.2 Sec. (24.2-36.6) 12/13/18 11:09 15.3 Sec. (15.1-19.6) 12/13/18 11:09 VBG pH 7.370 (7.320-7.420) 12/13/18 11:09 Sodium 139 mmol/L (137-145) 12/13/18 11:09 Potassium 4.5 mmol/L (3.6-5.0) 12/13/18 11:09 Chloride 99.7 mmol/L (98-107) 12/13/18 11:09 Carbon Dioxide 25 mmol/L (22-30) 12/13/18 11:09 19 mmol/L 12/13/18 11:09 BUN 7 mg/dL (7-17) 12/13/18 11:09 0.5 mg/dL (0.7-1.2) L 12/13/18 11:09 Estimated GFR > 60 ml/min 12/13/18 11:09 14 % 12/13/18 11:09 Glucose 227 mg/dL (65-100) H 12/13/18 11:09 POC Glucose 176 (70-105) H 12/13/18 21:17 8.8 % (4-6) H 12/14/18 04:51 Calcium 9.6 mg/dL (8.4-10.2) 12/13/18 11:09 0.40 mg/dL (0.1-1.2) 12/13/18 11:09 < 0.2 mg/dL (0-0.2) 12/13/18 11:09 AST 9 units/L (5-40) 12/13/18 11:09 ALT 8 units/L (7-56) 12/13/18 11:09 99 units/L (35-129) 12/13/18 11:09 < 0.010 ng/mL (0.00-0.029) 12/13/18 11:09 7.9 g/dL (6.3-8.2) 12/13/18 11:09 4.3 g/dL (3.9-5) 12/13/18 11:09 1.2 % 12/13/18 11:09 Triglycerides 85 mg/dL (2-149) 12/14/18 04:51 Cholesterol 115 mg/dL (50-199) 12/14/18 04:51 67 mg/dL (50-130) 12/14/18 04:51 40 mg/dL (40-59) 12/14/18 04:51 2.87 % 12/14/18 04:51 TSH 1.750 mlU/mL (0.270-4.200) 12/13/18 11:09 Straw (Yellow) 12/13/18 19:15 Clear (Clear) 12/13/18 19:15 6.0 (5.0-7.0) 12/13/18 19:15 Ur Specific [place] 1.008 (1.003-1.030) 12/13/18 19:15 <15 mg/dl mg/dL (Negative) 12/13/18 19:15 Neg mg/dL (Negative) 12/13/18 19:15 Tr mg/dL (Negative) 12/13/18 19:15 Sm (Negative) 12/13/18 19:15 Neg (Negative) 12/13/18 19:15 Neg (Negative) 12/13/18 19:15 < 2.0 mg/dL (<2.0) 12/13/18 19:15 Ur Leukocyte Esterase Neg (Negative) 12/13/18 19:15 2.0 /HPF (0.0-6.0) 12/13/18 19:15 3.0 /HPF (0.0-6.0) 12/13/18 19:15 U Epithel Cells (Auto) < 1.0 /HPF (0-13.0) 12/13/18 19:15 Few /HPF 12/13/18 19:15 Active Medications - Current Medications Current Medications: Generic Name Dose Route Start Last Admin Trade Name Freq PRN Reason Stop Dose Admin Acetaminophen 650 mg 12/13/18 14:11 Tylenol PO Q4H PRN Pain MILD(1-3)/Fever >100.5/PURI Amlodipine Besylate 10 mg 12/13/18 15:40 12/13/18 17:33 Norvasc PO 10 mg DAILY AMADO Administration Aspirin 325 mg 12/13/18 15:00 12/13/18 17:23 Aspirin PO Not Given QDAY AMADO Atorvastatin Calcium 40 mg 12/13/18 22:00 12/13/18 21:04 Lipitor PO 40 mg QHS AMADO Administration Benzocaine/Menthol 1 each 12/13/18 20:32 12/13/18 21:04 Cepacol X Strength MM 1 each Q2H PRN Administration Sore Throat Hydralazine HCl 50 mg 12/13/18 15:00 12/14/18 05:51 Apresoline PO 50 mg Q8HR AMADO Administration Metformin HCl 500 mg 12/13/18 15:00 12/13/18 21:04 Glucophage PO 500 mg BID AMADO Administration Ondansetron HCl 4 mg 12/13/18 14:11 Zofran IV Q8H PRN Nausea And Vomiting Sodium Chloride 10 ml 12/13/18 22:00 12/13/18 21:12 Sodium Chloride Flush Syringe 10 Ml IV 10 ml BID AMADO Administration Sodium Chloride 10 ml 12/13/18 14:11 Sodium Chloride Flush Syringe 10 Ml IV PRN PRN LINE FLUSH Sodium Chloride 10 ml 12/13/18 14:13 Sodium Chloride Flush Syringe 10 Ml IV PRN PRN LINE FLUSH Valsartan 160 mg 12/13/18 15:45 12/13/18 17:33 Diovan PO 160 mg QDAY AMADO Administration
[2018-12-14] MEDS: NORVASC PO SCH (09:49)
[2018-12-14] MEDS: ASPIRIN PO SCH (09:49)
[2018-12-14] MEDS: SODIUM CHLORIDE FLUSH SYRINGE 10 ML IV SCH ×2 (09:50→22:08)
[2018-12-14] MEDS: GLUCOPHAGE PO SCH ×2 (09:50→22:08)
[2018-12-14] MEDS: DIOVAN PO SCH (09:50)
[2018-12-14] MEDS: TYLENOL PO PRN (09:53)
--- NOTE | 2018-12-14 18:07 | Consultation ---
History of Present Illness Consult date: 12/14/18 Reason for Consult: Stroke Chief complaint: Slurred speech History of present illness: Patient is 63-year-old woman with history of diabetes, hypertension, hyperlipidemia. She was in her usual state of health until she woke up at 5 AM yesterday morning. When she woke up, she noted that she had slurred speech. Patient then came to the ER. She is not felt to be a TPA candidate, as she was outside of the TPA window. Patient states that her symptom of slurred speech has persisted. Past History Past Medical History: diabetes, hypertension, hyperlipidemia Social history: lives with family Family history: no significant family history Medications and Allergies Allergies Allergy/AdvReac Type Severity Reaction Status Date / Time No Known Allergies Allergy Unverified 04/18/14 11:21 Home Medications Medication Instructions Recorded Confirmed Last Taken Type AtorvaSTATin [Lipitor] 20 mg PO QHS #30 tab 06/16/18 12/13/18 12/12/18 Rx amLODIPine [Norvasc] 10 mg PO DAILY #30 tablet 06/16/18 12/13/18 12/12/18 Rx Valsartan [Diovan] 160 mg PO QDAY 12/13/18 12/13/18 12/12/18 History hydrALAZINE [Apresoline TAB] 50 mg PO Q8HR 12/13/18 12/13/18 12/12/18 History metFORMIN [Glucophage] 500 mg PO BID 12/13/18 12/13/18 12/12/18 History Active Meds: Active Medications Acetaminophen (Tylenol) 650 mg PO Q4H PRN PRN Reason: Pain MILD(1-3)/Fever >100.5/PURI Last Admin: 12/14/18 09:53 Dose: 650 mg Documented by: Amlodipine Besylate (Norvasc) 10 mg PO DAILY [facility] Last Admin: 12/14/18 09:49 Dose: 10 mg Documented by: Aspirin (Aspirin) 325 mg PO QDAY [facility] Last Admin: 12/14/18 09:49 Dose: 325 mg Documented by: Atorvastatin Calcium (Lipitor) 40 mg PO QHS [facility] Last Admin: 12/13/18 21:04 Dose: 40 mg Documented by: Benzocaine/Menthol (Cepacol X Strength) 1 each MM Q2H PRN PRN Reason: Sore Throat Last Admin: 12/13/18 21:04 Dose: 1 each Documented by: Hydralazine HCl (Apresoline) 50 mg PO Q8HR [facility] Last Admin: 12/14/18 14:28 Dose: 50 mg Documented by: Metformin HCl (Glucophage) 500 mg PO BID [facility] Last Admin: 12/14/18 09:50 Dose: 500 mg Documented by: Ondansetron HCl (Zofran) 4 mg IV Q8H PRN PRN Reason: Nausea And Vomiting Sodium Chloride (Sodium Chloride Flush Syringe 10 Ml) 10 ml IV BID [facility] Last Admin: 12/14/18 09:50 Dose: 10 ml Documented by: Sodium Chloride (Sodium Chloride Flush Syringe 10 Ml) 10 ml IV PRN PRN PRN Reason: LINE FLUSH Sodium Chloride (Sodium Chloride Flush Syringe 10 Ml) 10 ml IV PRN PRN PRN Reason: LINE FLUSH Valsartan (Diovan) 160 mg PO QDAY [facility] Last Admin: 12/14/18 09:50 Dose: 160 mg Documented by: Review of Systems All systems: negative Neurological: change in speech Physical Examination - Vital Signs Vital Signs: Vital Signs Temp Pulse Resp BP Pulse Ox 98.1 F 82 18 173/85 96 12/13/18 10:24 12/13/18 10:24 12/13/18 10:24 12/13/18 10:24 12/13/18 10:24 - Constitutional General appearance: comfortable - EENT EENT: Present: ATNC, PERRL, mucous membranes moist, hearing intact, vision int act - Respiratory Respiratory: Present: lungs clear, normal breath sounds - Cardiovascular Cardiovascular: Present: regular rate, normal S1, normal S2 Extremities: Present: no peripheral edema bilatateraly, no clubbing, cyanosis - Gastrointestinal Gastrointestinal: Present: normoactive bowel sounds, soft, non-tender - Integumentary Integumentary: Present: normal - Neurologic Cranial nerve examination: PERRL, EOMI, VFF, V1/V2/V3 grossly intact, tongue midline, intact shoulder shrug, facial droop (left-sided) Speech examination: other (dysarthria noted) Detailed motor examination: full strength in all antonio Motor examination - right side: 5/5: biceps, triceps, wrist flexion, wrist extension, school crossing guard, hip flexors, knee extensors, dorsiflexion, toe extension (EHL), plantarflexion Motor examination - left side: 5/5: biceps, triceps, wrist flexion, wrist extension, school crossing guard, hip flexors, knee extensors, dorsiflexion, toe extension (EHL), plantarflexion Detailed sensory examination: intact, light touch Reflexes: 2+: ankle, bicep, knee, tricep Cerebellar examination: other (bilaterally intact to [id number] and [id number]) - Musculoskeletal Musculoskeletal: Present: no fluid collection, no pain - Psychiatric Psychiatric: Present: mood/affect appropriate - Level of Consciousness 1a. Level of Consciousness: alert/keenly responsive - LOC Questions 1b. LOC Questions: answers both correctly - LOC Command 1c. LOC Commands: performs tasks correctly - Best Gaze 2. Best Gaze: normal - Visual 3. Visual: no visual loss - Facial Palsy 4. Facial Palsy: minor paralysis - Motor Arm 5a. Motor Arm Left: no drift 5b. Motor Arm Right: no drift - Motor Leg 6a. Motor Leg Left: no drift 6b. Motor Leg Right: no drift - Limb Ataxia 7. Limb Ataxia: absent - Sensory 8. Sensory: normal - Best Language 9. Best Language: no aphasia - Dysarthria 10. Dysarthria: mild/moderate dysarthria - Extinction and Inattention 11. Extinction/Inattention: no abnormality - Scoring Total Score: 2 Stroke Severity: Minor Stroke Results - Laboratory Findings CBC and BMP: 12/13/18 11:09 12/13/18 11:09 Abnormal Lab Findings: Abnormal Labs 12/13/18 12/13/18 12/13/18 10:26 11:09 11:09 MCH 27 L Creatinine 0.5 L Glucose 227 H POC Glucose 234 H Hemoglobin A1c 12/13/18 12/13/18 12/14/18 17:08 21:17 04:51 MCH Creatinine Glucose POC Glucose 168 H 176 H Hemoglobin A1c 8.8 H 12/14/18 12/14/18 12/14/18 08:26 12:26 17:43 MCH Creatinine Glucose POC Glucose 154 H 184 H 176 H Hemoglobin A1c Assessment and Plan Patient is a 63-year-old woman with a history of hypertension, diabetes, hyperlipidemia, who presents with slurred speech and left facial droop, which he first noted when she woke yesterday morning. According the patient's clinical findings, the patient is had an acute ischemic stroke as is noted on MRI. Plan: 1. Stroke: MRI revealed a right subcortical lacunar stroke. MRA head did not reveal any significant stenosis Carotid ultrasound did not reveal any significant stenosis Echocardiogram: EF 60-65%, bubble study negative, left atrial size normal. Continue aspirin As patient has a lacunar stroke, most likely etiology is uncontrolled hypertension, causing microvascular disease. - Continue atorvastatin. Current LDL 67, LDL goal less than 70. Telemetry monitoring while in-house. PT/OT/ST. DVT prophylaxis: Recommend Lovenox #2. Hypertension: Next linerecommend blood pressure goal of less than 220/120 for the next 24 hours, to allow for permissive hypertension. - Will sign off, as I will not be covering neurology service over the weekend. Please consult neurologist covering weekend for further neurologic management and monitoring. Thank you for allowing me to take part in the care of this patient. Blaine Talavera MD Neurology
[2018-12-14] MEDS: AMBIEN PO PRN (22:08)
[2018-12-15] MEDS: APRESOLINE PO SCH ×3 (05:45→22:23)
[2018-12-15] MEDS: HumuLIN R SUB-Q SCH ×4 (08:42→22:24)
[2018-12-15] MEDS: TYLENOL PO PRN (08:45)
[2018-12-15] MEDS: GLUCOPHAGE PO SCH ×2 (09:32→22:23)
[2018-12-15] MEDS: SODIUM CHLORIDE FLUSH SYRINGE 10 ML IV SCH ×2 (09:33→22:24)
[2018-12-15] MEDS: DIOVAN PO SCH (09:33)
[2018-12-15] MEDS: NORVASC PO SCH (09:33)
[2018-12-15] MEDS: ASPIRIN PO SCH (09:33)
[2018-12-15] MEDS: COLACE PO SCH ×2 (11:35→22:23)
--- NOTE | 2018-12-15 11:58 | Progress Note ---
Assessment and Plan Assessment and plan: Patient is a 63-year-old -[place] woman with a history of type 2 DM and hypertension who presents to [facility] ED with slurred speech since 5 AM. Telemetry neurology consulted, but not tPA candidate because time frame. * MRI/MRA brain without contrast IMPRESSION: 1. Small acute lacunar infarct in the right ganglial capsular region without associated hemorrhage or adverse mass effect. 2. No other acute intracranial abnormality. 3. No large vessel occlusion or significant stenosis of the intracranial arteries. * Carotid US Doppler bilateral: No significant stenosis -Acute CVA: treat with ASA, statin -Hypertension: Continue antihypertensives, low salt diet -T2DM (type 2 diabetes mellitus): Continue metformin and coverage, A1c 8.8, counseling done Disposition: continue inpatient care, anticipate discharge tomorrow as patient would like another day of rehab and speech Therapist has not seen yet History Interval history: Patient was seen and examined. Follow-up on current diagnosis of CVA. No overnight events reported to me. Patient denies any chest pain, shortness breath, nausea/vomiting or severe headaches. Imaging, nursing note, chart, labs and old chart reviewed. Discussed with patient. Hospitalist Physical - Physical exam Narrative exam: Gen: WDWN, NAD, Awake, Alert, Orientated HEENT: NCAT, EOMI, PERRL, OP Clear Neck: supple, no adenopathy, no thyromegaly, no JVD CVS/Heart: RRR, normal S1S2, pulses present bilaterally Chest/Lungs: CTA B, Symmetrical chest expansion, good air entry bilaterally GI/Abdomen: soft, NTND, good bowel sounds, no guarding or rebound /Bladder: no suprapubic tenderness, no CVA or paraspinal tenderness Extermity/Skin: no c/c/e, no obvious rash MSK: FROM x 4 Neuro: CN 2-12 grossly intact, +moderate dysarthria, +sensory deficit Psych: calm - Constitutional Vitals: Temp Pulse Resp BP Pulse Ox 98.6 F 79 18 131/76 93 12/15/18 11:28 12/15/18 11:28 12/15/18 11:28 12/15/18 11:28 12/15/18 11:28 General appearance: Present: no acute distress, well-nourished Results - Labs CBC & Chem 7: 12/13/18 11:09 12/13/18 11:09 Labs: Laboratory Last Values WBC 6.9 K/mm3 (4.5-11.0) 12/13/18 11:09 RBC 4.62 M/mm3 (3.65-5.03) 12/13/18 11:09 Hgb 12.3 gm/dl (10.1-14.3) 12/13/18 11:09 Hct 37.8 % (30.3-42.9) 12/13/18 11:09 MCV 82 fl (79-97) 12/13/18 11:09 MCH 27 pg (28-32) L 12/13/18 11:09 MCHC 33 % (30-34) 12/13/18 11:09 RDW 14.8 % (13.2-15.2) 12/13/18 11:09 Plt Count 287 K/mm3 (140-440) 12/13/18 11:09 Lymph % (Auto) 30.0 % (13.4-35.0) 12/13/18 11:09 [place] % (Auto) 3.3 % (0.0-7.3) 12/13/18 11:09 Eos % (Auto) 0.4 % (0.0-4.3) 12/13/18 11:09 Baso % (Auto) 0.8 % (0.0-1.8) 12/13/18 11:09 Lymph # 2.1 K/mm3 (1.2-5.4) 12/13/18 11:09 [place] # 0.2 K/mm3 (0.0-0.8) 12/13/18 11:09 Eos # 0.0 K/mm3 (0.0-0.4) 12/13/18 11:09 Baso # 0.1 K/mm3 (0.0-0.1) 12/13/18 11:09 Seg Neutrophils % 65.5 % (40.0-70.0) 12/13/18 11:09 Seg Neutrophils # 4.5 K/mm3 (1.8-7.7) 12/13/18 11:09 PT 12.3 Sec. (12.2-14.9) 12/13/18 11:09 INR 0.94 (0.87-1.13) 12/13/18 11:09 APTT 29.2 Sec. (24.2-36.6) 12/13/18 11:09 15.3 Sec. (15.1-19.6) 12/13/18 11:09 VBG pH 7.370 (7.320-7.420) 12/13/18 11:09 Sodium 139 mmol/L (137-145) 12/13/18 11:09 Potassium 4.5 mmol/L (3.6-5.0) 12/13/18 11:09 Chloride 99.7 mmol/L (98-107) 12/13/18 11:09 Carbon Dioxide 25 mmol/L (22-30) 12/13/18 11:09 19 mmol/L 12/13/18 11:09 BUN 7 mg/dL (7-17) 12/13/18 11:09 0.5 mg/dL (0.7-1.2) L 12/13/18 11:09 Estimated GFR > 60 ml/min 12/13/18 11:09 14 % 12/13/18 11:09 Glucose 227 mg/dL (65-100) H 12/13/18 11:09 POC Glucose 152 (70-105) H 12/15/18 07:44 8.8 % (4-6) H 12/14/18 04:51 Calcium 9.6 mg/dL (8.4-10.2) 12/13/18 11:09 0.40 mg/dL (0.1-1.2) 12/13/18 11:09 < 0.2 mg/dL (0-0.2) 12/13/18 11:09 AST 9 units/L (5-40) 12/13/18 11:09 ALT 8 units/L (7-56) 12/13/18 11:09 99 units/L (35-129) 12/13/18 11:09 < 0.010 ng/mL (0.00-0.029) 12/13/18 11:09 7.9 g/dL (6.3-8.2) 12/13/18 11:09 4.3 g/dL (3.9-5) 12/13/18 11:09 1.2 % 12/13/18 11:09 Triglycerides 85 mg/dL (2-149) 12/14/18 04:51 Cholesterol 115 mg/dL (50-199) 12/14/18 04:51 67 mg/dL (50-130) 12/14/18 04:51 40 mg/dL (40-59) 12/14/18 04:51 2.87 % 12/14/18 04:51 TSH 1.750 mlU/mL (0.270-4.200) 12/13/18 11:09 Straw (Yellow) 12/13/18 19:15 Clear (Clear) 12/13/18 19:15 6.0 (5.0-7.0) 12/13/18 19:15 Ur Specific [place] 1.008 (1.003-1.030) 12/13/18 19:15 <15 mg/dl mg/dL (Negative) 12/13/18 19:15 Neg mg/dL (Negative) 12/13/18 19:15 Tr mg/dL (Negative) 12/13/18 19:15 Sm (Negative) 12/13/18 19:15 Neg (Negative) 12/13/18 19:15 Neg (Negative) 12/13/18 19:15 < 2.0 mg/dL (<2.0) 12/13/18 19:15 Ur Leukocyte Esterase Neg (Negative) 12/13/18 19:15 2.0 /HPF (0.0-6.0) 12/13/18 19:15 3.0 /HPF (0.0-6.0) 12/13/18 19:15 U Epithel Cells (Auto) < 1.0 /HPF (0-13.0) 12/13/18 19:15 Few /HPF 12/13/18 19:15 Active Medications - Current Medications Current Medications: Generic Name Dose Route Start Last Admin Trade Name Freq PRN Reason Stop Dose Admin Acetaminophen 650 mg 12/13/18 14:11 12/15/18 08:45 Tylenol PO 650 mg Q4H PRN Administration Pain MILD(1-3)/Fever >100.5/PURI Amlodipine Besylate 10 mg 12/13/18 15:40 12/15/18 09:33 Norvasc PO 10 mg DAILY AMADO Administration Aspirin 325 mg 12/13/18 15:00 12/15/18 09:33 Aspirin PO 325 mg QDAY AMADO Administration Atorvastatin Calcium 40 mg 12/13/18 22:00 12/14/18 22:07 Lipitor PO 40 mg QHS AMADO Administration Benzocaine/Menthol 1 each 12/13/18 20:32 12/13/18 21:04 Cepacol X Strength MM 1 each Q2H PRN Administration Sore Throat Docusate Sodium 100 mg 12/15/18 11:00 12/15/18 11:35 Colace PO 100 mg BID AMADO Administration Hydralazine HCl 50 mg 12/13/18 15:00 12/15/18 05:45 Apresoline PO 50 mg Q8HR AMADO Administration Insulin Human Regular 0 units 12/15/18 07:30 12/15/18 11:36 Humulin R SUB-Q 2 units ACHS AMADO Administration Protocol Metformin HCl 500 mg 12/13/18 15:00 12/15/18 09:32 Glucophage PO 500 mg BID AM[facility]O Administration Ondansetron HCl 4 mg 12/13/18 14:11 Zofran IV Q8H PRN Nausea And Vomiting Sodium Chloride 10 ml 12/13/18 22:00 12/15/18 09:33 Sodium Chloride Flush Syringe 10 Ml IV 10 ml BID AM[facility]O Administration Sodium Chloride 10 ml 12/13/18 14:11 Sodium Chloride Flush Syringe 10 Ml IV PRN PRN LINE FLUSH Sodium Chloride 10 ml 12/13/18 14:13 Sodium Chloride Flush Syringe 10 Ml IV PRN PRN LINE FLUSH Valsartan 160 mg 12/13/18 15:45 12/15/18 09:33 Diovan PO 160 mg QDAY [facility] Administration Zolpidem Tartrate 5 mg 12/14/18 21:41 12/14/18 22:08 Ambien PO 5 mg QHS PRN Administration Sleep
[2018-12-15] MEDS: AMBIEN PO PRN (22:23)
[2018-12-16] MEDS: APRESOLINE PO SCH (05:45)
[2018-12-16] MEDS: HumuLIN R SUB-Q SCH ×2 (08:16→12:37)
--- NOTE | 2018-12-16 10:18 | Discharge Summary ---
Providers - Providers Date of Admission: 12/13/18 14:11 Date of discharge: 12/16/18 Attending physician: SHANTEL ARENAS 12/13/18 14:13 Occupational Therapy Evaluate and Treat [CONS] Routine Comment: Reason For Exam: Neuro deficits Physical Therapy Evaluation and Treat [CONS] Routine Comment: Reason For Exam: Neuro deficits 12/14/18 00:39 Consult to Physician [CONS] Routine Comment: Consulting Provider: CLIF VÁZQUEZ Physician Instructions: Reason For Exam: cva 12/14/18 18:09 Speech Therapy Evaluation and Treat [CONS] Routine Reason For Exam: stroke Primary care physician: [employer] Hospitalization Condition: Stable Hospital course: Patient is a 63-year-old -[place] woman with a history of type 2 DM and hypertension who presents to [facility] ED with slurred speech since 5 AM. Telemetry neurology consulted, but not tPA candidate because time frame. * MRI/MRA brain without contrast IMPRESSION: 1. Small acute lacunar infarct in the right ganglial capsular region without associated hemorrhage or adverse mass effect. 2. No other acute intracranial abnormality. 3. No large vessel occlusion or significant stenosis of the intracranial arteries. * Carotid US Doppler bilateral: No significant stenosis -Acute CVA: treat with ASA, statin -Hypertension: Continue antihypertensives, low salt diet -T2DM (type 2 diabetes mellitus): Continue metformin and coverage, A1c 8.8, counseling done Disposition: DC-01 TO HOME OR SELFCARE Time spent for discharge: 34 minutes Core Measure Documentation - Palliative Care Palliative Care/ Comfort Measures: Not Applicable - Core Measures Any of the following diagnoses?: stroke - VTE Discharge Requirements Deep Vein Thrombosis/Pulmonary Embolism Present on Admission: No Has pt received <5 days of overlap therapy or INR<2.0: No Anticoagulant overlap therapy prescribed at discharge: No Contraindication No Overlap Therapy order at DC: Not Indicated - Stroke Discharge Requirements Statin for LDL = or >70 mg/dl on DC: Yes Anticoag for atrial fib/atrial flutter: Not Applicable Reason for no anticoag for AF/F on DC: Not Indicated Antithrombotic for ischemic stroke: Yes Exam - Physical Exam Narrative exam: Gen: WDWN, NAD, Awake, Alert, Orientated HEENT: NCAT, EOMI, PERRL, OP Clear Neck: supple, no adenopathy, no thyromegaly, no JVD CVS/Heart: RRR, normal S1S2, pulses present bilaterally Chest/Lungs: CTA B, Symmetrical chest expansion, good air entry bilaterally GI/Abdomen: soft, NTND, good bowel sounds, no guarding or rebound /Bladder: no suprapubic tenderness, no CVA or paraspinal tenderness Extermity/Skin: no c/c/e, no obvious rash MSK: FROM x 4 Neuro: CN 2-12 grossly intact, +moderate dysarthria, +sensory deficit Psych: calm - Constitutional Vitals: Temp Pulse Resp BP Pulse Ox 98.8 F 89 16 149/82 95 12/16/18 08:52 12/16/18 08:52 12/16/18 08:52 12/16/18 08:52 12/16/18 08:52 Plan Activity: no driving until cleared by PCP, other (no strenous activity ) Diet: low salt [facility] [Referring] - 3-5 Days SAM ARMAS MD [Staff Physician] - 7 Days Prescriptions: Zolpidem [Ambien] 5 mg PO QHS PRN #15 tablet PRN Reason: Sleep AtorvaSTATin [Lipitor] 40 mg PO QHS #30 tablet Aspirin 325 mg PO QDAY #30 tablet Valsartan [Diovan] 160 mg PO QDAY #30 tablet amLODIPine [Norvasc] 10 mg PO DAILY #30 tablet
[2018-12-16] MEDS: GLUCOPHAGE PO SCH (10:24)
[2018-12-16] MEDS: NORVASC PO SCH (10:24)
[2018-12-16] MEDS: ASPIRIN PO SCH (10:24)
[2018-12-16] MEDS: DIOVAN PO SCH (10:24)
[2018-12-16] MEDS: COLACE PO SCH (10:24)
[2018-12-16] MEDS: SODIUM CHLORIDE FLUSH SYRINGE 10 ML IV SCH (10:25)
[2018-12-16 12:11] VITALS: BP 143/79
== END 2018-12-16 14:10 | disposition home or self-care (01) | DRG 66 ==
LOC: ED 10:07 → 4A 14:11
PROVIDERS: ADMIT Internal Medicine; ATTEND Internal Medicine
DX: I63.9 Cerebral infarction, unspecified (principal); I10 Essential (primary) hypertension; R47.81 Slurred speech; R29.810 Facial weakness; E11.65 Type 2 diabetes mellitus with hyperglycemia; Z79.899 Other long term (current) drug therapy; Z82.49 Family history of ischemic heart disease and other diseases of the circulatory system
CPT/HCPCS: 36415; 70450; 70544; 70551; 80048; 80061; 80076; 81001; 82805; 82962; 83036; 84443; 84484; 85025; 85610; 85670; 85730; 87116; 93005; 93010; 93306; 93880; G0378; A9270-GY; J1815

== ENCOUNTER 2018-12-25 06:29 | Observation (INO) | payer OTHER ==
[2018-12-25 06:48] LABS: Basophils # (Auto) 0.1 K/mm3 (0.0-0.1); Basophils % (Auto) 0.7 % (0.0-1.8); Eosinophils # (Auto) 0.1 K/mm3 (0.0-0.4); Eosinophils % (Auto) 1.6 % (0.0-4.3); Hematocrit 36.5 % (30.3-42.9); Hemoglobin 11.8 gm/dl (10.1-14.3); Lymphocytes # (Auto) 3.3 K/mm3 (1.2-5.4); Lymphocytes % (Auto) 45.1 % (13.4-35.0); Mean Corpuscular HGB Conc 32 % (30-34); Mean Corpuscular Volume 82 fl (79-97); Monocytes # (Auto) 0.4 K/mm3 (0.0-0.8); Platelet Count 265 K/mm3 (140-440); Red Blood Count 4.44 M/mm3 (3.65-5.03); Red Cell Distribution Width 15.2 % (13.2-15.2)
--- NOTE | 2018-12-25 06:55 | Cat Scan Report ---
CT head/brain wo con INDICATION: neuro deficits <6hrs or sx present upon awakening. TECHNIQUE: Routine CT head without contrast. All CT scans at this location are performed using CT dos e reduction for ALARA by means of automated exposure control. COMPARISON: Head CT on 12/18/2018. FINDINGS: BRAIN / INTRACRANIAL CONTENTS: No acute hemorrhage, mass effect, midline shift, or hydrocephalus. No appreciable acute large territorial or lacunar infarct. Stable subacute infarct in the right frontal fuentes radiata and chronic lacunar infarcts in the right basal ganglia. Stable chronic infarct in the right posterior cerebellar hemisphere. ORBITS: No significant abnormality of visualized orbits. SINUSES / MASTOIDS: No significant abnormality of visualized sinuses and mastoid air cells. ADDITIONAL FINDINGS: None. IMPRESSION: 1. No appreciable acute infarct or acute hemorrhage. 2. Stable subacute to chronic infarcts. Findings called to emergency department at 5:50 AM on 12/25/2018. Signer Name: Bhupinder Cohen MD Signed: 12/25/2018 6:50 AM Workstation Name: [id number]
[2018-12-25 06:59] LABS: INR 0.94 (0.87-1.13); Partial Thromboplastin Time 29.7 Sec. (24.2-36.6)
--- NOTE | 2018-12-25 07:02 | Emergency Department Report ---
HPI - General Time Seen by Provider: 12/25/18 06:48 - HPI HPI: [employer] TeleNeurology Consult Services Patient was informed the Neurology Consult would happen via TeleHealth consult by way of interactive audio and video telecommunications and consented to receiving care in this manner. Due to the immediate potential for life-threatening deterioration due to underlying acute neurologic illness, I spent 35 minutes providing critical care. This time includes time for face to face visit via telemedicine, review of medical records, imaging studies and discussion of findings with providers, the patient and/or family. Date of Service: 12/25/2018 06:31:55 History of Present Illness: Patient is a 63 years old Female. Patient was brought by EMS for symptoms of R facial numbness/arm weakness/numbness Patient with hx of TIA last week on asa/plavix states she woke up with more inte nse sxs of face and arm numbness with more weakness of he arm at 5 am. She denies any chest pain at this time and no hx of OK. She states sxs are similar to last admission but more intense. CT scan head per my review with old BG lacunar infarct on the R. CT head showed no acute hemorrhage or acute core infarct. CT head was reviewed. ED Past Medical Hx - Past Medical History Hx Hypertension: Yes Hx Heart Attack/AMI: No Hx Congestive Heart Failure: No Hx Diabetes: Yes Hx Deep Vein Thrombosis: No Hx Liver Disease: No Hx Asthma: No Hx COPD: No Hx HIV: No - Surgical History Hx Coronary Stent: No Hx Open Heart Surgery: No Hx Pacemaker: No Hx Internal Defibrillator: No Hx Cholecystectomy: No Hx Appendectomy: No Hx Breast Surgery: No - Social History Smoking Status: Never Smoker Substance Use Type: None - Medications Home Medications: Home Medications Medication Instructions Recorded Confirmed Last Taken Type metFORMIN [Glucophage] 500 mg PO BID 12/13/18 12/20/18 12/12/18 History AtorvaSTATin [Lipitor] 40 mg PO QHS #30 tablet 09/12/20/18 12/19/18 22:00 Rx Valsartan [Diovan] 160 mg PO QDAY #30 tablet 12/16/18 12/20/18 12/20/18 09:25 Rx Zolpidem [Ambien] 5 mg PO QHS PRN #15 tablet 12/16/18 12/20/18 Unknown Rx amLODIPine [Norvasc] 10 mg PO DAILY #30 tablet 12/16/18 12/20/18 12/20/18 09:25 Rx Aspirin [Aspirin BABY CHEW TAB] 81 mg PO QDAY #30 tab.chew 12/22/18 Unknown Rx Clopidogrel [Plavix] 75 mg PO QDAY #30 tablet 12/22/18 Unknown Rx ED Review of Systems ROS: Stated complaint: POSS STROKE Other details as noted in HPI Physical Exam - Physical Exam Vital Signs: Vital Signs 12/25/18 06:40 Temperature 98.3 F Pulse Rate 85 Respiratory 16 Rate Blood Pressure 165/92 Blood Pressure 165/92 [Left] O2 Sat by Pulse 100 Oximetry General: Examination: 1A: Level of Consciousness - Alert; keenly responsive + 0 1B: Ask Month and Age - Both Questions Right + 0 1C: Blink Eyes & Squeeze Hands - Performs Both Tasks + 0 2: Test Horizontal Extraocular Movements - Normal + 0 3: Test Visual Gallagher - No Visual Loss + 0 4: Test Facial Palsy (Use Grimace if Obtunded) - Normal symmetry + 0 5A: Test Left Arm Motor Drift - No Drift for 10 Seconds + 0 5B: Test Right Arm Motor Drift - No Drift for 10 Seconds + 0 6A: Test Left Leg Motor Drift - No Drift for 5 Seconds + 0 6B: Test Right Leg Motor Drift - No Drift for 5 Seconds + 0 7: Test Limb Ataxia (FNF/Heel-Etienne) - No Ataxia + 0 8: Test Sensation - Mild-Moderate Loss: Less Sharp/More Dull + 1 9: Test Language/Aphasia - Normal; No aphasia + 0 10: Test Dysarthria - Normal + 0 11: Test Extinction/Inattention - No abnormality + 0 NIHSS Score: 1 ED Course Vital Signs 12/25/18 06:40 Temperature 98.3 F Pulse Rate 85 Respiratory 16 Rate Blood Pressure 165/92 Blood Pressure 165/92 [Left] O2 Sat by Pulse 100 Oximetry ED Medical Decision Making - Lab Data Result diagrams: 12/25/18 Unknown - Medical Decision Making Impression: RO Acute Ischemic Stroke Comments: not iv tpa candidate as sxs greater than 4.5hrs not STEFANIA candidate as exam has improved and exam not consistent with LVO. Metrics: Last Known Well: 12/24/2018 00:00:00 [employer] Notification Time: 12/25/2018 06:31:01 Arrival Time: 12/25/2018 06:32:00 Stamp Time: 12/25/2018 06:31:55 Time First Login Attempt: 12/25/2018 06:40:00 Video Start Time: 12/25/2018 06:40:00 Symptoms: R facial numbness/arm weakness/numbness NIHSS Start Assessment Time: 12/25/2018 06:41:00 Patient is not a candidate for tPA. Patient was not deemed candidate for tPA thrombolytics because of Last Well Known Above 4.5 Hours. Video End Time: 12/25/2018 06:46:00 CT head showed no acute hemorrhage or acute core infarct. CT head was reviewed. Advanced imaging was not obtained as the presentation was not suggestive of Large Vessel Occlusive Disease. ER physician notified of the decision on thrombolytics management. Our recommendations are outlined below. Recommendations: Antiplatelet Therapy Recommended Recommended Scan: MRI Head Therapies: Physical Therapy, Occupational Therapy, Speech Therapy Assessment When Applicable DVT prophylaxis: Choice of Primary Team Disposition: Follow up with Teleneurology Follow up Sign Out: Discussed with Emergency Department Provider Dr Clifton Damon [employer] Critical care attestation.: If time is entered above; I have spent that time in minutes in the direct care of this critically ill patient, excluding procedure time. ED Disposition Clinical Impression: Acute CVA (cerebrovascular accident) Disposition: - OP ADMIT IP TO THIS HOSP Is pt being admited?: Yes Condition: Stable
[2018-12-25 07:07] LABS: BUN/Creatinine Ratio 13; Blood Urea Nitrogen 9 mg/dL (7-17); Calcium 9.1 mg/dL (8.4-10.2); Hemolysis Index 6
--- NOTE | 2018-12-25 07:36 | Emergency Department Report ---
ED Neuro Deficit HPI - General Chief Complaint: Neuro Symptoms/Deficit Stated Complaint: POSS STROKE Time Seen by Provider: 12/25/18 06:48 Source: EMS Mode of arrival: Stretcher Limitations: Physical Limitation - History of Present Illness Initial Comments: CC 3-year-old female who has some degree of expressive aphasia and is difficult to understand. As I can ascertain, the patient is stating that she awoke at 5 AM with decreased sensation of the right side of her face. She and her family relate that her recent strokes have caused increasing left-sided weakness although she is able to walk. She has slurred speech and difficulty communicating. Her recent discharge summary is as follows: Hospital course: 63 YO Female with HTN, DM, Obesity Hypoventilation, recent CVA with out any residual weakness presents to ED for evaluation of Right facial numbness, headache, and difficulty speaking. Pt states that her symptoms began around 1100 hrs on 12/18. Pt seen and evaluated in ED and found to have symptoms consistent with possible CVA. Pt admitted to the hospital and and initiated on CVA protocol. Neurology consulted. MRI of the brain pending Radiological data: CT head without contrast: No acute intracranial process, 1.8 x 1.4 cm subacute ischemic infarct is identified in the right fuentes radiata. This was noted on the MRI dated 12/13/2018. No new acute process is identified. Chronic right cerebellar infarct. MRI brain: There has been interval progression of the recent infarct involving right fuentes radiata from 12/13/2018 as detailed above. Additionally, there is a developing a 9 mm acute infarct along the more inferior right ganglia capsular region. Discharge diagnosis and mx: Right-sided facial numbness -new onset acute CVA on inferior right ganglia capsular region and interval progression of the recent infarct involving right fuentes radiata from 12/13/2018 - CT head on admission did not show any acute intracranial process -MRI brain this admission showed interval progression of the recent infarct involving right fuentes radiata from 12/13/2018, Additionally, there is a developing a 9 mm acute infarct along the more inferior right ganglia capsular region. - We'll continue on stroke protocol, - Neuro consultED, RECOMMENDED yasemin - DONE TODAY W/O ANY THROMBUS - cont PT OT eval, Continue aspirin and statin - added plavix Right sided weakness with Recent CVA (cerebral vascular accident) - Supportive care, aspirin, Plavix and statin I did not note that the patient had a vascular study only a CT of the head on the and an MRI on the . -: During the night Location: right face History of same: Yes Place: home Severity: moderate Quality: numb Improves With: none Worsens With: none On Anticoagulants: No (only antiplatelet agents) Context: other (recent stroke) Associated Symptoms: denies other symptoms - Related Data Home Medications: Home Medications Medication Instructions Recorded Confirmed Last Taken metFORMIN [Glucophage] 500 mg PO BID 12/13/18 12/20/18 12/12/18 Previous Rx's Medication Instructions Recorded Last Taken Type AtorvaSTATin [Lipitor] 40 mg PO QHS #30 tablet 12/16/18 12/19/18 22:00 Rx Valsartan [Diovan] 160 mg PO QDAY #30 tablet 12/16/18 12/20/18 09:25 Rx Zolpidem [Ambien] 5 mg PO QHS PRN #15 tablet 12/16/18 Unknown Rx amLODIPine [Norvasc] 10 mg PO DAILY #30 tablet 12/16/18 12/20/18 09:25 Rx Aspirin [Aspirin BABY CHEW TAB] 81 mg PO QDAY #30 tab.chew 12/22/18 Unknown Rx Clopidogrel [Plavix] 75 mg PO QDAY #30 tablet 12/22/18 Unknown Rx Allergies/Adverse Reactions: Allergies Allergy/AdvReac Type Severity Reaction Status Date / Time No Known Allergies Allergy Unverified 04/18/14 11:21 ED Review of Systems ROS: Stated complaint: POSS STROKE Other details as noted in HPI Constitutional: denies: chills, fever Eyes: denies: eye pain, eye discharge, vision change ENT: denies: ear pain, throat pain Respiratory: denies: cough, shortness of breath, wheezing Cardiovascular: denies: chest pain, palpitations Endocrine: no symptoms reported Gastrointestinal: denies: abdominal pain, nausea, diarrhea Genitourinary: denies: urgency, dysuria, discharge Musculoskeletal: denies: back pain, joint swelling, arthralgia Skin: denies: rash, lesions Neurological: as per HPI, numbness. denies: headache, weakness, paresthesias Psychiatric: denies: anxiety, depression Hematological/Lymphatic: denies: easy bleeding, easy bruising ED Past Medical Hx - Past Medical History Hx Hypertension: Yes Hx Heart Attack/AMI: No Hx Congestive Heart Failure: No Hx Diabetes: Yes Hx Deep Vein Thrombosis: No Hx Liver Disease: No Hx Asthma: No Hx COPD: No Hx HIV: No - Surgical History Hx Coronary Stent: No Hx Open Heart Surgery: No Hx Pacemaker: No Hx Internal Defibrillator: No Hx Cholecystectomy: No Hx Appendectomy: No Hx Breast Surgery: No - Social History Smoking Status: Never Smoker Substance Use Type: None - Medications Home Medications: Home Medications Medication Instructions Recorded Confirmed Last Taken Type metFORMIN [Glucophage] 500 mg PO BID 12/13/18 12/20/18 12/12/18 History AtorvaSTATin [Lipitor] 40 mg PO QHS #30 tablet 12/16/18 12/20/18 12/19/18 22:00 Rx Valsartan [Diovan] 160 mg PO QDAY #30 tablet 12/16/18 12/20/18 12/20/18 09:25 Rx Zolpidem [Ambien] 5 mg PO QHS PRN #15 tablet 12/16/18 12/20/18 Unknown Rx amLODIPine [Norvasc] 10 mg PO DAILY #30 tablet 12/16/18 12/20/18 12/20/18 09:25 Rx Aspirin [Aspirin BABY CHEW TAB] 81 mg PO QDAY #30 tab.chew 12/22/18 Unknown Rx Clopidogrel [Plavix] 75 mg PO QDAY #30 tablet 12/22/18 Unknown Rx ED Neuro Physical Exam - General Limitations: Physical Limitation General appearance: alert, in no apparent distress Suspected Stroke: Yes - Head Head exam: Present: atraumatic, normocephalic - Eye Eye exam: Present: normal appearance. Absent: scleral icterus - ENT ENT exam: Present: mucous membranes moist - Neck Neck exam: Present: normal inspection - Respiratory Respiratory exam: Present: normal lung sounds bilaterally. Absent: respiratory distress - Cardiovascular Cardiovascular Exam: Present: regular rate, normal rhythm. Absent: systolic murmur, diastolic murmur, rubs, gallop - GI/Abdominal GI/Abdominal exam: Present: soft, normal bowel sounds. Absent: distended, tenderness, guarding, rebound - Extremities Exam Extremities exam: Present: normal inspection - Back Exam Back exam: Present: normal inspection - Neurological Exam Neurological exam: Present: alert, oriented X3, motor sensory deficit (the sensation right face is decreased subjectively). Absent: CN II-XII intact (facial asymmetry slight left-sided weakness) - NIHSS Assessment Interval: Baseline 1a. Level of Consciousness: alert/keenly responsive 1b. LOC Questions: answers both correctly 1c. LOC Commands: performs tasks correctly 2. Best Gaze: normal 3. Visual: no visual loss 4. Facial Palsy: minor paralysis 5b. Motor Arm Right: no drift 5a. Motor Arm Left: no drift 6a. Motor Leg Left: no drift 6b. Motor Leg Right: no drift 7. Limb Ataxia: absent 8. Sensory: mild/moderate sensory loss 9. Best Language: no aphasia 10. Dysarthria: mild/moderate dysarthria 11. Extinction/Inattention: no abnormality Total Score: 3 Stroke Severity: Minor Stroke - Psychiatric Psychiatric exam: Present: normal affect, normal mood - Skin Skin exam: Present: warm, dry, intact, normal color. Absent: rash ED Course Vital Signs 12/25/18 06:40 Temperature 98.3 F Pulse Rate 85 Respiratory 16 Rate Blood Pressure 165/92 Blood Pressure 165/92 [Left] O2 Sat by Pulse 100 Oximetry - Reevaluation(s) Reevaluation #1: She was seen by the [facility] neurologist. There are no indications for TPA at this time it is contraindicated due to recent stroke. It is uncertain as to whether the current symptoms are indicative of a new stroke. MR testing will be required. Perhaps the patient needs a vascular study as well. Further di agnostic evaluation per hospitalist. 12/25/18 07:40 - Lab Data Result diagrams: 12/25/18 Unknown 12/25/18 Unknown Lab Results 12/25/18 12/25/18 12/25/18 Range/Units Unknown Unknown Unknown WBC 7.4 (4.5-11.0) K/mm3 RBC 4.44 (3.65-5.03) M/mm3 Hgb 11.8 (10.1-14.3) gm/dl Hct 36.5 (30.3-42.9) % MCV 82 (79-97) fl MCH 27 L (28-32) pg MCHC 32 (30-34) % RDW 15.2 (13.2-15.2) % Plt Count 265 (140-440) K/mm3 Lymph % (Auto) 45.1 H (13.4-35.0) % Sully % (Auto) 6.0 (0.0-7.3) % Eos % (Auto) 1.6 (0.0-4.3) % Baso % (Auto) 0.7 (0.0-1.8) % Lymph # 3.3 (1.2-5.4) K/mm3 Sully # 0.4 (0.0-0.8) K/mm3 Eos # 0.1 (0.0-0.4) K/mm3 Baso # 0.1 (0.0-0.1) K/mm3 Seg Neutrophils % 46.6 (40.0-70.0) % Seg Neutrophils # 3.5 (1.8-7.7) K/mm3 PT 12.3 (12.2-14.9) Sec. INR 0.94 (0.87-1.13) APTT 29.7 (24.2-36.6) Sec. Thrombin Time (15.1-19.6) Sec. Sodium 138 (137-145) mmol/L Potassium 4.6 (3.6-5.0) mmol/L Chloride 102.6 (98-107) mmol/L Carbon Dioxide 25 (22-30) mmol/L Anion Gap 15 mmol/L BUN 9 (7-17) mg/dL Creatinine 0.7 (0.7-1.2) mg/dL Estimated GFR > 60 ml/min BUN/Creatinine Ratio 13 % Glucose 219 H (65-100) mg/dL Calcium 9.1 (8.4-10.2) mg/dL Troponin T < 0.010 (0.00-0.029) ng/mL 12/25/18 Range/Units Unknown WBC (4.5-11.0) K/mm3 RBC (3.65-5.03) M/mm3 Hgb (10.1-14.3) gm/dl Hct (30.3-42.9) % MCV (79-97) fl MCH (28-32) pg MCHC (30-34) % RDW (13.2-15.2) % Plt Count (140-440) K/mm3 Lymph % (Auto) (13.4-35.0) % Sully % (Auto) (0.0-7.3) % Eos % (Auto) (0.0-4.3) % Baso % (Auto) (0.0-1.8) % Lymph # (1.2-5.4) K/mm3 Sully # (0.0-0.8) K/mm3 Eos # (0.0-0.4) K/mm3 Baso # (0.0-0.1) K/mm3 Seg Neutrophils % (40.0-70.0) % Seg Neutrophils # (1.8-7.7) K/mm3 PT (12.2-14.9) Sec. INR (0.87-1.13) APTT (24.2-36.6) Sec. Thrombin Time 16.6 (15.1-19.6) Sec. Sodium (137-145) mmol/L Potassium (3.6-5.0) mmol/L Chloride (98-107) mmol/L Carbon Dioxide (22-30) mmol/L Anion Gap mmol/L BUN (7-17) mg/dL Creatinine (0.7-1.2) mg/dL Estimated GFR ml/min BUN/Creatinine Ratio % Glucose (65-100) mg/dL Calcium (8.4-10.2) mg/dL Troponin T (0.00-0.029) ng/mL Laboratory Results - last 24 hr 12/25/18 12/25/18 12/25/18 Unknown Unknown Unknown WBC 7.4 RBC 4.44 Hgb 11.8 Hct 36.5 MCV 82 MCH 27 L MCHC 32 RDW 15.2 Plt Count 265 Lymph % (Auto) 45.1 H Sully % (Auto) 6.0 Eos % (Auto) 1.6 Baso % (Auto) 0.7 Lymph # 3.3 Sully # 0.4 Eos # 0.1 Baso # 0.1 Seg Neutrophils % 46.6 Seg Neutrophils # 3.5 PT 12.3 INR 0.94 APTT 29.7 Thrombin Time Sodium 138 Potassium 4.6 Chloride 102.6 Carbon Dioxide 25 Anion Gap 15 BUN 9 Creatinine 0.7 Estimated GFR > 60 BUN/Creatinine Ratio 13 Glucose 219 H Calcium 9.1 Troponin T < 0.010 12/25/18 Unknown WBC RBC Hgb Hct MCV MCH MCHC RDW Plt Count Lymph % (Auto) Sully % (Auto) Eos % (Auto) Baso % (Auto) Lymph # Sully # Eos # Baso # Seg Neutrophils % Seg Neutrophils # PT INR APTT Thrombin Time 16.6 Sodium Potassium Chloride Carbon Dioxide Anion Gap BUN Creatinine Estimated GFR BUN/Creatinine Ratio Glucose Calcium Troponin T - EKG Data -: EKG Interpreted by Me EKG shows normal: sinus rhythm Rate: normal Interpretation: no acute changes, other (slightly prolonged SC, no significant abnormal repolarization) - Radiology Data CT no acute process per radiologist Critical care attestation.: If time is entered above; I have spent that time in minutes in the direct care of this critically ill patient, excluding procedure time. ED Disposition Clinical Impression: Acute CVA (cerebrovascular accident), Morbid obesity Diabetes mellitus type 2, uncontrolled Qualifiers: Glycemic state: with hyperglycemia Qualified Code(s): E11.65 - Type 2 diabetes mellitus with hyperglycemia Disposition: DC-09 OP ADMIT IP TO THIS HOSP Is pt being admited?: Yes Does the pt Need Aspirin: Yes Condition: Stable Instructions: Diabetes Mellitus Type 2 in Adults (ED) Time of Disposition: 07:41
[2018-12-25] MEDS ORDERED: ASPIRIN PO ONE (07:42)
--- NOTE | 2018-12-25 08:12 | History and Physical Report ---
History of Present Illness Date of examination: 12/25/18 Date of admission: 12/25/18 Chief complaint: right facial and hand numbness and weakness History of present illness: 63 YO Female with HTN, DM, recent CVA x2 with dysarthia discharged from hospital 2 days ago presents to ED for evaluation of Right facial and hand numbness and weakness. Pt states that her symptoms began around 5;30 on 12/25. She states her symptom worse than prior presentation. She had a stroke on 12/13/18, and was started on aspirin. She then had another stroke on 12/18/18, and was started on plavix as wel. Pt seen and evaluated in ED and found to have symptoms consistent with possible CVA, evaluated by teleneurology. Pt will be admitted to the hospital and initiated on CVA protocol. Neurology consulted. MRI of the brain ordered. Past History Past Medical History: diabetes, hypertension, stroke Past Surgical History: No surgical history, Other (reviewed) Social history: single Family history: diabetes, hypertension Review of System: Constitutional: no fever, no chills, no weight loss Ears, eyes, nose, mouth and throat: no nasal congestion, no nasal discharge, no sinus pressure, no vision change, no red eye. Neck: No neck pain or rigidity. Cardiovascular: No chest pain, no orthopnea, no palpitations, no leg swelling Respiratory: No shortness of breath, no cough, no congestion, no wheezing Gastrointestinal: no abdominal pain, no nausea, no vomiting Genitourinary : no dysuria, no hematuria Musculoskeletal: no joint swelling or muscle ache Integumentary: no rash, no pruritis Neurological: no parathesias, + right-sided numbness and weakness, no tingling Endocrine: no cold or heat intolerance, no polyuria or polydipsia Hematologic/Lymphatic: no easy bruising, no easy bleeding, no gland swelling Allergic/Immunologic: no urticaria, no angioedema. Medications and Allergies Allergies Allergy/AdvReac Type Severity Reaction Status Date / Time No Known Allergies Allergy Unverified 04/18/14 11:21 Home Medications Medication Instructions Recorded Confirmed Last Taken Type metFORMIN [Glucophage] 500 mg PO BID 12/13/18 12/25/18 12/24/18 History AtorvaSTATin [Lipitor] 40 mg PO QHS #30 tablet 12/16/18 12/25/18 12/24/18 Rx Valsartan [Diovan] 160 mg PO QDAY #30 tablet 12/16/18 12/25/18 12/24/18 Rx Zolpidem [Ambien] 5 mg PO QHS PRN #15 tablet 12/16/18 12/25/18 12/24/18 Rx amLODIPine [Norvasc] 10 mg PO DAILY #30 tablet 12/16/18 12/25/18 12/24/18 Rx Aspirin [Aspirin BABY CHEW TAB] 81 mg PO QDAY #30 tab.chew 12/22/18 12/25/18 12/24/18 Rx Clopidogrel [Plavix] 75 mg PO QDAY #30 tablet 12/22/18 12/25/18 12/24/18 Rx Exam - Physical Exam Narrative exam: GENERAL: well-developed and well-nourished obese female lying on bed appeared to be in no discomfort. HEENT: Normocephalic. Atraumatic. No conjunctival congestion or icterus. Patient has moist mucous membranes. NECK: Supple. Trachea midline. CHEST/LUNGS: Clear to auscultated bilaterally, breathing nonlabored. No wheezes crackles or rhonchi. HEART/CARDIOVASCULAR: Regular in rate and rhythm. S1 and S2 positive. ABDOMEN: Abdomen is soft, nontender. Patient has normal bowel sounds. SKIN: There is no rash. Warm and dry. NEURO: No focal motor deficit. Follows command. MUSCULOSKELETAL: No joint effusion or tenderness. EXTRIMITY: No edema, no cyanosis or clubbing. PSYCH: Cooperative. - Constitutional Vitals: Temp Pulse Resp BP Pulse Ox 98.3 F 85 14 165/92 100 12/25/18 06:40 12/25/18 06:40 12/25/18 07:47 12/25/18 06:40 12/25/18 07:47 Results - Labs CBC & Chem 7: 12/25/18 Unknown 12/25/18 Unknown Labs: Abnormal lab results 12/25/18 12/25/18 Range/Units Unknown Unknown MCH 27 L (28-32) pg Lymph % (Auto) 45.1 H (13.4-35.0) % Glucose 219 H (65-100) mg/dL - Imaging and Cardiology Chest x-ray: report reviewed CT Scan - head: report reviewed Assessment and Plan Right-sided numbness - ?? new onset acute CVA or progression of old one - CT head on admission did not show any acute intracranial process -MRI brain ordered - We'll continue on stroke protocol, - Neuro consultED, S - cont PT OT eval, Continue aspirin, plavix and statin Right sided weakness with Recent CVA (cerebral vascular accident) - Supportive care, aspirin, Plavix and statin HTN, cont to monitor, will resume home meds DM type 2, consistent carb diet after speech eval - SSI Obesity, dietary recommendation DVt Px, lovenox
--- NOTE | 2018-12-25 08:14 | XRay Report ---
CHEST 1 VIEW INDICATION / CLINICAL INFORMATION: hypertension. COMPARISON: 06/14/2018 FINDINGS: SUPPORT DEVICES: None. HEART / MEDIASTINUM: No significant abnormality. LUNGS / PLEURA: No significant pulmonary or pleural abnormality.. No pneumothorax. ADDITIONAL FINDINGS: No significant additional findings. IMPRESSION: 1. No significant change. Signer Name: Nathen Whitney MD Signed: 12/25/2018 8:09 AM Workstation Name: [id number]
[2018-12-25] MEDS ORDERED: ASPIRIN ONE (09:19)
--- NOTE | 2018-12-25 13:14 | Magnetic Resonance Report ---
MR brain wo con INDICATION / CLINICAL INFORMATION: 63 years Female; MAIN: CVA, aphasia, rt side weakness. TECHNIQUE: Multiplanar, multisequence MR images of the brain were obtained. COMPARISON: CT - 12/25/2018; MRI - 12/19/2018 FINDINGS: BRAIN / INTRACRANIAL CONTENTS: Subacute ischemic corpus striatal infarct again noted on the right. No detrimental change from prior appreciated. Mild cerebral and cerebellar atrophy. Old, branch PICA infarct seen on the right, with associated cor tical laminar necrosis-best seen on T1 imaging. There are areas of increased signal intensity on FLAIR imaging in the white matter of the cerebral he mispheres. These are nonspecific findings and may be related to microangiopathy (hypertension, diabet es, atherosclerosis), given the patient's age. Otherwise, no acute ischemia, acute hemorrhage, or hydrocephalus. CRANIOCERVICAL JUNCTION: No significant abnormality. VASCULAR FLOW-VOIDS: No significant abnormality. ORBITS: No significant abnormality of visualized orbits. SINUSES / MASTOIDS: No significant abnormality of visualized sinuses and mastoid air cells. ADDITIONAL FINDINGS: None. IMPRESSION: 1. Stable subacute infarct in the right corpus striatal region. 2. Otherwise, no focal mass, hemorrhage, hydrocephalus, or acute ischemia. Signer Name: Nicholas Christensen MD, III Signed: 12/25/2018 1:10 PM Workstation Name: [id number]
--- NOTE | 2018-12-25 14:42 | Consultation ---
History of Present Illness Consult date: 12/25/18 Reason for Consult: Possible Stroke Chief complaint: Right facial numbness History of present illness: Patient is a 63 y/o woman w/ a h/o HTN, DM, h/o recent stroke w/ residual left sided weakness and dysarthria. She awoke this morning with symptoms of left facial weakness. She had a stroke on 12/13/18, and was started on aspirin. She then had another stroke on 12/18/18, and was started on plavix as well. This morning, patient awoke at 5am with right facial numbness. These symptoms have slightly improved since this morning, but not resolved. She states that she has been compliant with aspirin and plavix. Past History Past Medical History: diabetes, hypertension, stroke Social history: no significant social history Family history: no significant family history Medications and Allergies Allergies Allergy/AdvReac Type Severity Reaction Status Date / Time No Known Allergies Allergy Unverified 04/18/14 11:21 Home Medications Medication Instructions Recorded Confirmed Last Taken Type metFORMIN [Glucophage] 500 mg PO BID 12/13/18 12/25/18 12/24/18 History AtorvaSTATin [Lipitor] 40 mg PO QHS #30 tablet 12/16/18 12/25/18 12/24/18 Rx Valsartan [Diovan] 160 mg PO QDAY #30 tablet 12/16/18 12/25/18 12/24/18 Rx Zolpidem [Ambien] 5 mg PO QHS PRN #15 tablet 12/16/18 12/25/18 12/24/18 Rx amLODIPine [Norvasc] 10 mg PO DAILY #30 tablet 12/16/18 12/25/18 12/24/18 Rx Aspirin [Aspirin BABY CHEW TAB] 81 mg PO QDAY #30 tab.chew 12/22/18 12/25/18 12/24/18 Rx Clopidogrel [Plavix] 75 mg PO QDAY #30 tablet 12/22/18 12/25/18 12/24/18 Rx Review of Systems All systems: negative Neurological: parathesias Physical Examination - Vital Signs Vital Signs: Vital Signs Temp Pulse Resp BP Pulse Ox 98.3 F 85 16 165/92 100 12/25/18 06:40 12/25/18 06:40 12/25/18 06:40 12/25/18 06:40 12/25/18 06:40 - Physical Exam Narrative exam: Patient is awake, alert, oriented x4. Follows complex commands. PERRL, VFF, no facial weakness, b/l intact to LT. RUE/RLE>: 5/5, LUE/LLE: 4/5. 2+ reflexes throughout. B/l intact to LT. B/l intact to FTN and HTS. - Constitutional General appearance: comfortable - EENT EENT: Present: ATNC, PERRL, mucous membranes moist, hearing intact, vision intact - Respiratory Respiratory: Present: lungs clear, normal breath sounds - Cardiovascular Cardiovascular: Present: regular rate, normal S1, normal S2 Extremities: Present: no peripheral edema bilatateraly, no clubbing, cyanosis - Gastrointestinal Gastrointestinal: Present: normoactive bowel sounds, soft, non-tender - Integumentary Integumentary: Present: normal - Neurologic Cranial nerve examination: PERRL, EOMI, VFF, V1/V2/V3 grossly intact, face symmetric, tongue midline Speech examination: other (Dysarthria noted) Motor examination - right side: 5/5: biceps, triceps, wrist flexion, wrist extension, harbor pilot, hip flexors, knee extensors, dorsiflexion, toe extension (EHL), plantarflexion Motor examination - left side: 4/5: biceps, triceps, wrist flexion, wrist extension, harbor pilot, hip flexors, knee extensors, dorsiflexion, toe extension (EHL), plantarflexion Detailed sensory examination: intact Reflexes: 2+: ankle, bicep, knee, tricep - Musculoskeletal Musculoskeletal: Present: no fluid collection, no pain - Psychiatric Psychiatric: Present: mood/affect appropriate Results - Laboratory Findings CBC and BMP: 12/25/18 Unknown 12/25/18 Unknown Abnormal Lab Findings: Abnormal Labs 12/25/18 12/25/18 Unknown Unknown MCH 27 L Lymph % (Auto) 45.1 H Glucose 219 H Assessment and Plan Patient is a 63 y/o woman w/ a h/o HTN, DM, h/o recent stroke w/ residual left sided weakness and dysarthria, p/w right facial paresthesias. According to the patient's clinical findings, there is no evidence of acute ischemic stroke on imaging. MRI revealed previous stroke, which was present on previous MRI, but no evidence of new infarct. It is possible that patient has had a TIA, as her symptoms are still within 24 hours. Plan: 1. Possible TIA: - MRI did not reveal any evidence of acute infarct - Recent MRA head unremarkable - Recent CUS unremarkable - Echo: EF 60-65%, bubble study negative, LA normal size - MERCEDES unremarkable - No objective numbness noted on right face on exam. - Continue aspirin and plavix - Continue statin - Telemetry monitoring while in house - PT/OT/ST - DVT Ppx: recommend lovenox 2. Hypertension: - Recommend target normal BP, as no evidence of new infarct on MRI - Will continue to monitor Thank you for allowing me to take part in the care of this patient. Blaine Talavera MD Neurology
[2018-12-26] MEDS ORDERED: HumaLOG SUB-Q ONE (09:00)
--- NOTE | 2018-12-26 11:33 | Discharge Summary ---
Providers - Providers Date of Admission: 12/25/18 08:08 Date of discharge: 12/26/18 Attending physician: ABIGAIL AVILES 12/25/18 08:07 Consult to Physician [CONS] Routine Comment: Consulting Provider: CLIF VÁZQUEZ Physician Instructions: Reason For Exam: recurrent right facial numbness Primary care physician: LEGAL SUPPORT ASSISTANT Hospitalization Condition: Stable Pertinent studies: CT head: 1. No appreciable acute infarct or acute hemorrhage. 2. Stable subacute to chronic infarcts. MRI brain: 1. Stable subacute infarct in the right corpus striatal region. 2. Otherwise, no focal mass, hemorrhage, hydrocephalus, or acute ischemia. Hospital course: 63 YO Female with HTN, DM, recent CVA x2 with dysarthia discharged from hospital 2 days ago presents to ED for evaluation of Right facial and hand numbness and weakness. Pt states that her symptoms began around 5;30 on 12/25. She states her symptom worse than prior presentation. She had a stroke on 12/13/18, and was started on aspirin. She then had another stroke on 12/18/18, and was started on plavix as wel. Pt seen and evaluated in ED and found to have symptoms consistent with possible CVA, evaluated by teleneurology. Pt was admitted to the hospital and initiated on CVA protocol, Neurology consulted, MRI of the brain ordered, admitted for further Mx. 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 - CT head on admission did not show any acute intracranial process - MRI brain showed no new infract - Neuro consultED, and recommended to Continue aspirin, plavix and statin - discharged home with outpt f/u in stable condition Right sided weakness with Recent CVA (cerebral vascular accident) - Given Supportive care, aspirin, Plavix and statin HTN, resumed home meds - norvasc 10mg daily DM type 2, placed on consistent carb diet and SSI Obesity, dietary recommendation provided DVt Px, lovenox Disposition: [id number] HOME UNDER HOME [facility] Time spent for discharge: 34 minutes Core Measure Documentation - Palliative Care Palliative Care/ Comfort Measures: Not Applicable - Core Measures Any of the following diagnoses?: history only Exam - Physical Exam Narrative exam: GENERAL: well-developed and well-nourished obese female lying on bed appeared to be in no discomfort. HEENT: Normocephalic. Atraumatic. No conjunctival congestion or icterus. Patient has moist mucous membranes. NECK: Supple. Trachea midline. CHEST/LUNGS: Clear to auscultated bilaterally, breathing nonlabored. No wheezes crackles or rhonchi. HEART/CARDIOVASCULAR: Regular in rate and rhythm. S1 and S2 positive. ABDOMEN: Abdomen is soft, nontender. Patient has normal bowel sounds. SKIN: There is no rash. Warm and dry. NEURO: No focal motor deficit. Follows command. MUSCULOSKELETAL: No joint effusion or tenderness. EXTRIMITY: No edema, no cyanosis or clubbing. PSYCH: Cooperative. - Constitutional Vitals: Temp Pulse Resp BP Pulse Ox 98.9 F 85 18 126/81 96 12/26/18 08:11 12/26/18 08:11 12/26/18 08:11 12/26/18 08:11 12/26/18 11:23 Plan Activity: fall precautions Weight Bearing Status: Non-Weight Bearing Diet: low fat, low salt, diabetic Additional Instructions: - Recommend long-term cardiac monitoring with 30-day MCOT or ILR. Follow up with: MARIA C LANIER MD [Primary Care Provider] - 7 Days ESTELA CASTAÑEDA MD [Staff Physician] - 7 Days KISHA POON MD [Staff Physician] - 7 Days
[2018-12-26] MEDS ORDERED: AMBIEN PO PRN (11:34)
--- NOTE | 2018-12-26 11:58 | Progress Note ---
Assessment and Plan Patient is a 63 y/o woman w/ a h/o HTN, DM, h/o recent stroke w/ residual left sided weakness and dysarthria, p/w right facial paresthesias. According to the patient's clinical findings, there is no evidence of acute ischemic stroke on imaging. MRI revealed previous stroke, which was present on previous MRI, but no evidence of new infarct. It is possible that patient has had a TIA, as her symptoms resolved within 24 hours. Plan: 1. Possible TIA: - MRI did not reveal any evidence of acute infarct - Recent MRA head unremarkable - Recent CUS unremarkable - Echo: EF 60-65%, bubble study negative, LA normal size - MERCEDES unremarkable - No objective numbness noted on right face on exam. - Continue aspirin and plavix - Continue statin - Telemetry monitoring while in house - PT/OT/ST - DVT Ppx: recommend lovenox - Recommend long-term cardiac monitoring with 30-day MCOT or ILR. 2. Hypertension: - Recommend target normal BP, as no evidence of new infarct on MRI - Will sign off as workup is complete and treatment plan is in place. Thank you for allowing me to take part in the care of this patient. Blaine Talavera MD Neurology Subjective Date of service: 12/26/18 Principal diagnosis: TIA Interval history: No acute events overnight. Right facial paresthesias have resolved. Objective - Exam Narrative Exam: Patient is awake, alert, oriented x4. Follows complex commands. PERRL, VFF, no facial weakness, b/l intact to LT. RUE/RLE>: 5/5, LUE/LLE: 4/5. 2+ reflexes throughout. B/l intact to LT. B/l intact to FTN and HTS. - Vital Sign Vital Signs - 12hr 12/26/18 12/26/18 12/26/18 04:20 08:11 11:23 Temperature 98.0 F 98.9 F Pulse Rate 57 L 85 Respiratory 18 18 Rate Blood Pressure 123/71 126/81 O2 Sat by Pulse 93 96 96 Oximetry - General Apperance Constitutional: comfortable - EENT EENT: ATNC, PERRL, mucous membranes moist, hearing intact, vision intact - Respiratory Respiratory: lungs clear, normal breath sounds - Cardiovascular Cardiovascular: normal S1, normal S2 Extremities: no peripheral edema bilat, no clubbing, cyanosis - Gastrointestinal Gastrointestinal: normoactive bowel sounds, soft, non-tender - Integumentary Integumentary: normal - Neurologic Cranial nerve examination: EOMI Motor examination - right side: 55: biceps, triceps, wrist flexion, wrist extension, maternity floor supervisor, hip flexors, knee extensors, dorsiflexion, toe extension (EHL), plantarflexion Motor examination - left side: 45: biceps, triceps, wrist flexion, wrist extension, maternity floor supervisor, hip flexors, knee extensors, dorsiflexion, toe extension (EHL), plantarflexion Detailed sensory examination: intact, light touch - Psychiatric Psychiatric: mood/affect appropriate - Laboratory Findings CBC and BMP: 12/25/18 Unknown 12/25/18 Unknown Abnormal Lab Findings: Abnormal Labs 12/25/18 12/25/18 12/25/18 16:55 20:30 Unknown MCH 27 L Lymph % (Auto) 45.1 H Glucose POC Glucose 159 H 215 H 12/25/18 12/26/18 Unknown 08:17 MCH Lymph % (Auto) Glucose 219 H POC Glucose 218 H
[2018-12-26] MEDS ORDERED: NORVASC PO SCH (12:00)
[2018-12-26] MEDS ORDERED: PLAVIX PO SCH (12:00)
[2018-12-26] MEDS ORDERED: GLUCOPHAGE PO SCH (12:00)
[2018-12-26] MEDS ORDERED: BABY ASPIRIN PO SCH (12:00)
[2018-12-26 12:01] VITALS: BP 132/76
[2018-12-26] MEDS ORDERED: HumuLIN R SUB-Q SCH (16:30)
[2018-12-26] MEDS ORDERED: LOVENOX SUB-Q SCH (22:00)
== END 2018-12-26 18:10 | disposition home health service (06) ==
LOC: ED 06:29 → INTOOBSV 08:08 → 4A 08:08
PROVIDERS: ADMIT Internal Medicine; ATTEND Internal Medicine
DX: I63.9 Cerebral infarction, unspecified (principal); M62.81 Muscle weakness (generalized); I10 Essential (primary) hypertension; E11.9 Type 2 diabetes mellitus without complications; E66.01 Morbid (severe) obesity due to excess calories; Z68.36 Body mass index [BMI] 36.0-36.9, adult; Z86.73 Personal history of transient ischemic attack (TIA), and cerebral infarction without residual deficits; Z79.02 Long term (current) use of antithrombotics/antiplatelets; Z79.82 Long term (current) use of aspirin
CPT/HCPCS: 36415; 70450; 70551; 71045; 80048; 82962; 84484; 85025; 85610; 85670; 85730; 93005; 93010; 96372; 99284; G0378; J1815

== ENCOUNTER 2020-12-16 10:30 | Emergency (ER) | payer MEDICARE ==
--- NOTE | 2020-12-16 11:16 | Emergency Department Report ---
ED Shortness of Breath HPI - General Chief Complaint: High BP Stated Complaint: SOB/HIGH BLOOD PRESSURE Time Seen by Provider: 12/16/20 11:10 Source: patient Mode of arrival: Ambulatory Limitations: No Limitations - History of Present Illness Initial Comments: Patient presents with chest pain shortness of breath. She actually states that she has been having more trouble breathing than anything else. She states that her chest just feels constricted. She is not actually having chest pain per se. She states that she has felt short of breath for several days now. This seems to be worse with exertion. She just cannot catch her breath. There has been a dry cough. She has had no pain or swelling in the feet or ankles. There has been no fever. She has had no recent travel or trauma. There have been no sick contacts. She has had no known coronavirus exposure. Patient is never had symptoms like this before. Because of the shortness of breath, she came here. She states that she has had generalized weakness for the last 7 days or so. T hat has gradually worsened. It is not focal. - Related Data Home Medications Medication Instructions Recorded Confirmed Last Taken metFORMIN [Glucophage] 500 mg PO BID 12/13/18 12/25/18 12/24/18 Previous Rx's Medication Instructions Recorded Last Taken Type AtorvaSTATin [Lipitor] 40 mg PO QHS #30 tablet 12/16/18 12/24/18 Rx Zolpidem [Ambien] 5 mg PO QHS PRN #15 tablet 12/16/18 12/24/18 Rx amLODIPine 10 mg PO DAILY #30 tablet 12/16/18 12/24/18 Rx Aspirin [Aspirin BABY CHEW TAB] 81 mg PO QDAY #30 tab.chew 12/22/18 12/24/18 Rx Clopidogrel [Plavix] 75 mg PO QDAY #30 tablet 12/22/18 12/24/18 Rx Albuterol Sulfate [Proair 90 mcg IH 4XD #1 aer.pow.ba 12/16/20 Unknown Rx Respiclick] Prednisone [predniSONE 10 mg 10 mg PO .TAPER #1 tab.ds.pk 12/16/20 Unknown Rx (6-Day Pack, 21 Tabs)] Allergies Allergy/AdvReac Type Severity Reaction Status Date / Time No Known Allergies Allergy Unverified 04/18/14 11:21 ED Review of Systems ROS: Stated complaint: SOB/HIGH BLOOD PRESSURE Other details as noted in HPI Comment: All other systems reviewed and negative Constitutional: denies: fever Eyes: denies: eye pain ENT: denies: throat pain Respiratory: no symptoms reported Cardiovascular: as per HPI. denies: palpitations Endocrine: denies: unexplained weight gain, unexplained weight loss Gastrointestinal: denies: abdominal pain Genitourinary: denies: dysuria Musculoskeletal: denies: back pain Skin: denies: rash Neurological: weakness. denies: headache Hematological/Lymphatic: denies: easy bruising ED Past Medical Hx - Past Medical History Previous Medical History?: Yes (Generalized) Hx Hypertension: Yes Hx CVA: Yes (2020) Hx Heart Attack/AMI: No Hx Congestive Heart Failure: No Hx Diabetes: Yes Hx Deep Vein Thrombosis: No Hx Liver Disease: No Hx Asthma: No Hx COPD: No Hx HIV: No - Surgical History Past Surgical History?: No Hx Coronary Stent: No Hx Open Heart Surgery: No Hx Pacemaker: No Hx Internal Defibrillator: No Hx Cholecystectomy: No Hx Appendectomy: No Hx Breast Surgery: No - Family History Family history: hypertension - Social History Smoking Status: Never Smoker - Medications Home Medications: Home Medications Medication Instructions Recorded Confirmed Last Taken Type metFORMIN [Glucophage] 500 mg PO BID 12/13/18 12/25/18 12/24/18 History AtorvaSTATin [Lipitor] 40 mg PO QHS #30 tablet 12/16/18 12/25/18 12/24/18 Rx Zolpidem [Ambien] 5 mg PO QHS PRN #15 tablet 12/16/18 12/25/18 12/24/18 Rx amLODIPine 10 mg PO DAILY #30 tablet 12/16/18 12/25/18 12/24/18 Rx Aspirin [Aspirin BABY CHEW TAB] 81 mg PO QDAY #30 tab.chew 12/22/18 12/25/18 12/24/18 Rx Clopidogrel [Plavix] 75 mg PO QDAY #30 tablet 12/22/18 12/25/18 12/24/18 Rx Albuterol Sulfate [Proair 90 mcg IH 4XD #1 aer.pow.ba 12/16/20 Unknown Rx Respiclick] Prednisone [predniSONE 10 mg 10 mg PO .TAPER #1 tab.ds.pk 12/16/20 Unknown Rx (6-Day Pack, 21 Tabs)] ED Physical Exam - General Limitations: No Limitations General appearance: alert, appears intoxicated (Mild), obese (Mild) - Head Head exam: Present: atraumatic, normocephalic, normal inspection - Eye Eye exam: Present: normal appearance, EOMI. Absent: scleral icterus - ENT ENT exam: Present: normal exam, normal orophraynx, mucous membranes moist - Neck Neck exam: Present: normal inspection, full ROM. Absent: meningismus - Respiratory Respiratory exam: Present: normal lung sounds bilaterally. Absent: respiratory distress - Cardiovascular Cardiovascular Exam: Present: regular rate, normal rhythm - GI/Abdominal GI/Abdominal exam: Present: soft. Absent: distended, tenderness - Extremities Exam Extremities exam: Present: normal capillary refill. Absent: tenderness, pedal edema - Back Exam Back exam: Absent: CVA tenderness (R), CVA tenderness (L) - Neurological Exam Neurological exam: Present: alert, oriented X3, CN II-XII intact, normal gait, reflexes normal. Absent: motor sensory deficit - Psychiatric Psychiatric exam: Present: normal affect, normal mood - Skin Skin exam: Present: warm, dry ED Course Vital Signs 12/16/20 10:57 Temperature 98.4 F Pulse Rate 86 Respiratory 22 Rate Blood Pressure 213/113 O2 Sat by Pulse 96 Oximetry - Reevaluation(s) Reevaluation #1: 12/16/20 11:15 EKG was noted. IV labs ordered. Reevaluation #2: 12/16/20 12:01 Labs are pending. Reevaluation #3: 12/16/20 13:03 X-ray was noted. Patient is not hypoxic. She was subsequently discharged and quarantined. ED Medical Decision Making - Lab Data Result diagrams: 12/16/20 11:33 12/16/20 11:33 - EKG Data -: EKG Interpreted by Nh EKG shows normal: sinus rhythm, axis, intervals, QRS complexes Rate: normal - EKG Data When compared to previous EKG there are: other (Nonspecific T wave flattening is noted.) Interpretation: nonspecific ST-T wave flash 12/16/20 12:01 Patient has normal intervals including a QT graded at 465. There is generalized T wave flattening. There is no ST elevation suggest infarct. There is no ST depression noted. - Radiology Data Radiology results: report reviewed - Medical Decision Making Patient presents with shortness of breath. There is no evidence of coronary artery disease. She does not have evidence of a heart attack. She did not have evidence of congestive heart failure. Chest x-ray was concerning for coronavirus. She was not hypoxic. She was not febrile. She did not appear to be toxic. She was not in respiratory failure. Patient can be treated symptomatically as an outpatient. She does not require admission. I have discussed this with her including quarantine. Critical Care Time: No Critical care attestation.: If time is entered above; I have spent that time in minutes in the direct care of this critically ill patient, excluding procedure time. ED Disposition Clinical Impression: Shortness of breath Disposition: 01 HOME / SELF CARE / HOMELESS Is pt being admited?: No Does the pt Need Aspirin: No Condition: Stable Instructions: Shortness of Breath, Adult, [id number] Additional Instructions: Use Tylenol for fever. Quarantine at home for 2 weeks. Follow-up with your regular doctor for recheck. Return for any problems or concerns. Prescriptions: Prednisone [predniSONE 10 mg (6-Day Pack, 21 Tabs)] 10 mg PO .TAPER #1 tab.ds.pk Albuterol Sulfate [Proair Respiclick] 90 mcg IH 4XD #1 aer.pow.ba
[2020-12-16 12:06] LABS: Hematocrit 33.6 % (30.3-42.9); Hemoglobin 11.1 gm/dl (10.1-14.3); Mean Corpuscular HGB Conc 33 % (30-34); Mean Corpuscular Volume 81 fl (79-97); Platelet Count 500 K/mm3 (140-440); Red Blood Count 4.16 M/mm3 (3.65-5.03); Red Cell Distribution Width 16.3 % (13.2-15.2)
--- NOTE | 2020-12-16 12:11 | XRay Report ---
CHEST PA AND LATERAL VIEWS INDICATION: dyspnea. COMPARISON: 12/25/2018 FINDINGS: Support devices: None. Heart: Within normal limits. Lungs/Pleura: There is bibasilar airspace disease that is somewhat patchy and predominantly periphera l. Upper lungs are relatively clear. No pleural abnormality. IMPRESSION: 1. Bilateral pneumonia. The pattern is concerning for COVID. Signer Name: Canelo Arellano MD Signed: 12/16/2020 12:07 PM Workstation Name: [id number]
[2020-12-16 12:24] LABS: Blood Urea Nitrogen 7 mg/dL (7-17); Calcium 9.6 mg/dL (8.4-10.2); Hemolysis Index 2
[2020-12-16 12:25] LABS: BUN/Creatinine Ratio 12
[2020-12-16 13:47] VITALS: BP 194/103
--- NOTE | 2020-12-18 13:20 | Electrocardiograph Report ---
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
== END 2020-12-16 13:47 | disposition home or self-care (01) ==
LOC: ED 10:30
DX: R06.02 Shortness of breath (principal); I10 Essential (primary) hypertension; Z86.73 Personal history of transient ischemic attack (TIA), and cerebral infarction without residual deficits; E11.8 Type 2 diabetes mellitus with unspecified complications
CPT/HCPCS: 36415; 71046; 80048; 84484; 85027; 93005; 99283